=== PATIENT | male | born 1960 | race Caucasian/White ===

== ENCOUNTER 2016-11-16 08:14 | Outpatient (CLI) ==
[2016-11-16 08:50] LABS: BASOPHILS # (AUTO) 0.1 K/uL (0-0.2); BASOPHILS % (AUTO) 0.6 % (0.0-3.0); EOSINOPHILS # (AUTO) 0.4 K/ul (0.0-0.7); EOSINOPHILS % (AUTO) 4.7 % (0.0-7.0); HEMATOCRIT 46.2 % (42.0-52.0); HEMOGLOBIN 15.4 g/dl (14.0-18.0); IMMATURE GRANULOCYTE % (AUTO) 0.5 % (0.0-5.0); LYMPHOCYTES % (AUTO) 25.1 (10.0-50.0); MEAN CORPUSCULAR HEMOGLOBIN 29.3 pg (27.0-31.0); MEAN CORPUSCULAR HGB CONC 33.3 (31.8-35.4); MONOCYTES # (AUTO) 0.8 K/uL (0.4-2.0); MONOCYTES % (AUTO) 9.8 (0-10); NEUTROPHILS # (AUTO) 4.6 K/ul (2.0-6.9); NEUTROPHILS % (AUTO) 59.3; PLATELET COUNT 308 10^3/uL (140-440); RED BLOOD COUNT 5.25 10^6/ul (4.70-6.10); WHITE BLOOD COUNT 7.82 K/ul (4.2-10.2)
[2016-11-16 09:07] LABS: ALBUMIN 3.8 g/dL (3.4-5.0); ALBUMIN/GLOBULIN RATIO 1.15; ANION GAP 13.4; BILIRUBIN,TOTAL 0.28 mg/dL (0.00-1.20); CALCIUM 9.5 mg/dL (8.2-10.2); CHOL/HDL RATIO 4.1 (4.5-6.4); POTASSIUM 4.4 mmol/L (3.5-5.1); TOTAL PROTEIN 7.1 g/dL (6.4-8.2)
== END 2016-11-16 08:15 | disposition home or self-care (01) ==
LOC: LAB 08:14
PROVIDERS: ATTEND Family Medicine
DX: E78.5 Hyperlipidemia, unspecified (principal); E11.9 Type 2 diabetes mellitus without complications; I25.10 Atherosclerotic heart disease of native coronary artery without angina pectoris; Z86.73 Personal history of transient ischemic attack (TIA), and cerebral infarction without residual deficits
CPT/HCPCS: 36415; 80053; 80061; 83036; 85025

== ENCOUNTER 2017-01-11 08:29 | Outpatient (CLI) ==
[2017-01-11 09:04] LABS: BILIRUBIN,URINE Negative (NEGATIVE); KETONES,URINE Negative (NEGATIVE); LEUKOCYTE ESTERASE ,URINE Negative (NEGATIVE); NITRITE,URINE Negative (NEGATIVE); PROTEIN,URINE Negative (NEGATIVE); URINE, BLOOD Negative (NEGATIVE)
[2017-01-11 09:05] LABS: ADD URINE MICROSCOPIC NO
[2017-01-11 09:07] LABS: BASOPHILS # (AUTO) 0.1 K/uL (0-0.2); BASOPHILS % (AUTO) 0.6 % (0.0-3.0); EOSINOPHILS # (AUTO) 0.3 K/ul (0.0-0.7); HEMATOCRIT 44.6 % (42.0-52.0); HEMOGLOBIN 15.3 g/dl (14.0-18.0); IMMATURE GRANULOCYTE % (AUTO) 0.5 % (0.0-5.0); LYMPHOCYTES % (AUTO) 23.9 (10.0-50.0); MEAN CORPUSCULAR HEMOGLOBIN 29.8 pg (27.0-31.0); MEAN CORPUSCULAR HGB CONC 34.3 (31.8-35.4); MEAN CORPUSCULAR VOLUME 86.8 fl (80.0-94.0); MONOCYTES # (AUTO) 0.8 K/uL (0.4-2.0); MONOCYTES % (AUTO) 9.2 (0-10); NEUTROPHILS # (AUTO) 5.1 K/ul (2.0-6.9); NEUTROPHILS % (AUTO) 61.8; PLATELET COUNT 312 10^3/uL (140-440); RED BLOOD COUNT 5.14 10^6/ul (4.70-6.10); WHITE BLOOD COUNT 8.28 K/ul (4.2-10.2)
[2017-01-11 09:26] LABS: ALBUMIN 3.9 g/dL (3.4-5.0); ALBUMIN/GLOBULIN RATIO 1.18; ANION GAP 12.4; BILIRUBIN,TOTAL 0.58 mg/dL (0.00-1.20); BUN/CREATININE RATIO 17.89; CALCIUM 9.5 mg/dL (8.2-10.2); CHOL/HDL RATIO 3.3 (4.5-6.4); CREATININE 0.95 mg/dL (0.60-1.10); POTASSIUM 4.4 mmol/L (3.5-5.1); TOTAL PROTEIN 7.2 g/dL (6.4-8.2)
== END 2017-01-11 08:30 | disposition home or self-care (01) ==
LOC: LAB 08:29
PROVIDERS: ATTEND Family Medicine
DX: I10 Essential (primary) hypertension (principal); E78.5 Hyperlipidemia, unspecified; E11.9 Type 2 diabetes mellitus without complications; Z86.73 Personal history of transient ischemic attack (TIA), and cerebral infarction without residual deficits
CPT/HCPCS: 36415; 80053; 80061; 81001; 83036; 85025

== ENCOUNTER 2017-04-04 10:17 | Outpatient (CLI) ==
[2017-04-04 10:35] LABS: BASOPHILS # (AUTO) 0.1 K/uL (0-0.2); BASOPHILS % (AUTO) 0.7 % (0.0-3.0); EOSINOPHILS # (AUTO) 0.3 K/ul (0.0-0.7); EOSINOPHILS % (AUTO) 3.4 % (0.0-7.0); HEMATOCRIT 44.7 % (42.0-52.0); HEMOGLOBIN 15.3 g/dl (14.0-18.0); IMMATURE GRANULOCYTE % (AUTO) 0.2 % (0.0-5.0); LYMPHOCYTES # (AUTO) 2.5 K/uL (0.60-3.4); LYMPHOCYTES % (AUTO) 31.2 (10.0-50.0); MEAN CORPUSCULAR HEMOGLOBIN 29.9 pg (27.0-31.0); MEAN CORPUSCULAR HGB CONC 34.2 (31.8-35.4); MEAN CORPUSCULAR VOLUME 87.3 fl (80.0-94.0); MONOCYTES # (AUTO) 0.7 K/uL (0.4-2.0); MONOCYTES % (AUTO) 8.1 (0-10); NEUTROPHILS # (AUTO) 4.5 K/ul (2.0-6.9); NEUTROPHILS % (AUTO) 56.4; PLATELET COUNT 304 10^3/uL (140-440); RED BLOOD COUNT 5.12 10^6/ul (4.70-6.10); WHITE BLOOD COUNT 8.05 K/ul (4.2-10.2)
[2017-04-04 11:03] LABS: ALBUMIN/GLOBULIN RATIO 1.05; ANION GAP 15.3; BILIRUBIN,TOTAL 0.34 mg/dL (0.00-1.20); BUN/CREATININE RATIO 16.49; CALCIUM 9.5 mg/dL (8.2-10.2); CREATININE 0.97 mg/dL (0.60-1.10); POTASSIUM 4.3 mmol/L (3.5-5.1); TOTAL PROTEIN 7.8 g/dL (6.4-8.2)
== END 2017-04-04 10:18 | disposition home or self-care (01) ==
LOC: LAB 10:17
PROVIDERS: ATTEND Family Medicine
DX: E78.5 Hyperlipidemia, unspecified (principal); I10 Essential (primary) hypertension; E11.9 Type 2 diabetes mellitus without complications; I63.9 Cerebral infarction, unspecified
CPT/HCPCS: 36415; 80053; 80061; 83036; 85025

== ENCOUNTER 2017-04-09 22:37 | Emergency (ER) ==
[2017-04-09 22:46] VITALS: BP 129/75; TEMP 98.4; BMI 30.9
[2017-04-09] MEDS ORDERED: KEFLEX PO STA (23:00)
[2017-04-09] MEDS ORDERED: CLARITIN PO ONE (23:00)
--- NOTE | 2017-04-09 23:04 | ED.PDOC ---
General ED Provider: Dr. BRANDI MUÑOZ Chief Complaint: Bite Stated Complaint: some thing bite at home in [place] on rt foot, its burning and hurting. Time Seen by Physician: 23:02 Mode of Arrival: Walk-In Information Source: Patient Primary Care Provider: CESILIA TOUSSAINT Nursing and Triage Documentation Reviewed and Agree: Yes Skin Complaint Exam - Skin/Soft Tissue Complaint/Exam Symptoms Are: Still present Timing: Constant Initial Severity: Mild Current Severity: Mild Character: Reports: Redness, Painful Aggravating: Reports: Touch Alleviating: Reports: None Associated Signs and Symptoms: Reports: Tenderness, Red streaks. Denies: Fever , Chills, Itching, Drainage, Bruising, Joint swelling Related Surgical History: Reports: None Skin Findings: Present: Erythema Differential Diagnoses: Cellulitis, Other (insect bite) Review of Systems - Review Of Systems Constitutional: Reports: No symptoms Eyes: Reports: No symptoms Ears, Nose, Mouth, Throat: Reports: No symptoms Respiratory: Reports: No symptoms Cardiac: Reports: No symptoms GI: Reports: No symptoms : Reports: No symptoms Musculoskeletal: Reports: No symptoms Skin: Reports: No symptoms Neurological: Reports: No symptoms Endocrine: Reports: No symptoms Hematologic/Lymphatic: Reports: No symptoms All Other Systems: Reviewed and Negative Past Medical History - Past Medical History Previously Healthy: Yes Endocrine: Reports: DM 2, Dyslipidemia Cardiovascular: Reports: Hypertension Respiratory: Reports: None Hematological: Reports: None Gastrointestinal: Reports: None Genitourinary: Reports: None 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) Musculoskeletal: Reports: None Cancer: Reports: None - Surgical History General Surgical History: Reports: None - Family History Family History: Reports: None - Social History Smoking Status: Never smoker Hx Substance Use: No Alcohol Screening: None - Immunizations Tetanus Shot up to Date: (UNKNOWN) Physical Exam - Physical Exam Appearance: Well-appearing, No pain distress, Well-nourished Eyes: MISA, EOMI, Conjunctiva clear ENT: Ears normal, Nose normal, Oropharynx normal Respiratory: Airway patent, Breath sounds clear, Breath sounds equal, Respirations nonlabored Cardiovascular: RRR, Pulses normal, No rub, No murmur GI/: Soft, Nontender, No masses, Bowel sounds normal, No Organomegaly Musculoskeletal: Normal strength, ROM intact, No edema, No calf tenderness Skin: Warm (rt foot, war, red, not black, pulse present), Dry, Normal color Neurological: Sensation intact, Motor intact, Reflexes intact, Cranial nerves intact, Alert, Oriented Psychiatric: Affect appropriate, Mood appropriate Critical Care Note - Critical Care Note Total Time (mins): 0 Course - Course Orders, Labs, Meds: Orders Category Date Time Status Cephalexin [Keflex] MEDS 04/09/17 23:00 Stat 500 mg PO ONCE STA Loratadine [Claritin] MEDS 04/09/17 23:00 Once 10 mg PO ONCE ONE Vital Signs: Temp Pulse Resp BP Pulse Ox 04/09/17 22:38 98.4 F 81 18 129/75 96 Departure - Departure Time of Disposition: 23:06 Disposition: HOME SELF-CARE Discharge Problem: Insect bite Qualifiers: Encounter type: initial encounter Qualifier Code: (W57.XXXA) Bitten or stung by nonvenomous insect and other nonvenomous arthropods, initial encounter Instructions: Insect Bite or Sting (ED) Condition: Stable Pt referred to PMD for follow-up: Yes Additional Instructions: Tylenol prn Rest If more redness and pain needs to come back probiotics Prescriptions: Cephalexin [Keflex] 500 mg PO Q12HR #20 capsule Loratadine [Claritin] 10 mg PO DAILY #10 tab.rapdis Allergies/Adverse Reactions: Allergies No Known Drug Allergies Adverse Reaction (Verified 04/09/17 22:46) Home Medications: Ambulatory Orders Cephalexin [Keflex] 500 mg PO Q12HR #20 capsule 04/09/17 Loratadine [Claritin] 10 mg PO DAILY #10 tab.rapdis 04/09/17 Disposition Discussed With: Patient
== END 2017-04-09 23:14 | disposition home or self-care (01) ==
LOC: ED 22:37
DX: S90.861A Insect bite (nonvenomous), right foot, initial encounter (principal); W57.XXXA Bitten or stung by nonvenomous insect and other nonvenomous arthropods, initial encounter
CPT/HCPCS: 99283

== ENCOUNTER 2017-04-25 09:43 | Outpatient (CLI) ==
[2017-04-25 10:17] LABS: BASOPHILS % (AUTO) 0.5 % (0.0-3.0); EOSINOPHILS # (AUTO) 0.2 K/ul (0.0-0.7); EOSINOPHILS % (AUTO) 3.1 % (0.0-7.0); HEMATOCRIT 42.9 % (42.0-52.0); HEMOGLOBIN 14.6 g/dl (14.0-18.0); IMMATURE GRANULOCYTE % (AUTO) 0.4 % (0.0-5.0); LYMPHOCYTES # (AUTO) 2.2 K/uL (0.60-3.4); MEAN CORPUSCULAR HEMOGLOBIN 30.2 pg (27.0-31.0); MEAN CORPUSCULAR VOLUME 88.6 fl (80.0-94.0); MONOCYTES # (AUTO) 0.7 K/uL (0.4-2.0); MONOCYTES % (AUTO) 8.9 (0-10); NEUTROPHILS # (AUTO) 4.6 K/ul (2.0-6.9); NEUTROPHILS % (AUTO) 59.1; PLATELET COUNT 301 10^3/uL (140-440); RED BLOOD COUNT 4.84 10^6/ul (4.70-6.10); WHITE BLOOD COUNT 7.71 K/ul (4.2-10.2)
[2017-04-25 10:26] LABS: BILIRUBIN,URINE Negative (NEGATIVE); KETONES,URINE Trace (NEGATIVE); LEUKOCYTE ESTERASE ,URINE Negative (NEGATIVE); NITRITE,URINE Negative (NEGATIVE); PH,URINE 5.5 (5-9); PROTEIN,URINE Trace (NEGATIVE); URINE, BLOOD Negative (NEGATIVE)
[2017-04-25 10:30] LABS: ADD URINE MICROSCOPIC YES
[2017-04-25 10:41] LABS: ALBUMIN 3.8 g/dL (3.4-5.0); ALBUMIN/GLOBULIN RATIO 1.09; ANION GAP 14.6; BILIRUBIN,TOTAL 0.47 mg/dL (0.00-1.20); BUN/CREATININE RATIO 15.74; CALCIUM 9.5 mg/dL (8.2-10.2); CREATININE 1.08 mg/dL (0.60-1.10); POTASSIUM 4.6 mmol/L (3.5-5.1); TOTAL PROTEIN 7.3 g/dL (6.4-8.2)
[2017-04-26 14:23] LABS: GAMMA GLUTAMYL TRANSFERASE 22 IU/L (0-65)
== END 2017-04-25 09:44 | disposition home or self-care (01) ==
LOC: LAB 09:43
PROVIDERS: ATTEND Family Medicine
DX: R19.7 Diarrhea, unspecified (principal)
CPT/HCPCS: 36415; 80053; 81001; 82977; 85025; 87015; 87045; 87493; 87899; 89055

== ENCOUNTER 2017-05-09 10:13 | Outpatient (CLI) | END 2017-05-09 10:14 | disposition home or self-care (01) | LOC: LAB 10:13 | PROVIDERS: ATTEND Family Medicine | DX: E11.65 Type 2 diabetes mellitus with hyperglycemia (principal) | CPT/HCPCS: 36415; 82947 ==

== ENCOUNTER 2017-06-27 10:06 | Outpatient (CLI) ==
[2017-06-27 10:20] LABS: BASOPHILS % (AUTO) 0.4 % (0.0-3.0); EOSINOPHILS # (AUTO) 0.2 K/ul (0.0-0.7); EOSINOPHILS % (AUTO) 2.6 % (0.0-7.0); HEMATOCRIT 44.2 % (42.0-52.0); HEMOGLOBIN 15.1 g/dl (14.0-18.0); IMMATURE GRANULOCYTE % (AUTO) 0.4 % (0.0-5.0); LYMPHOCYTES # (AUTO) 2.4 K/uL (0.60-3.4); LYMPHOCYTES % (AUTO) 26.3 (10.0-50.0); MEAN CORPUSCULAR HEMOGLOBIN 30.1 pg (27.0-31.0); MEAN CORPUSCULAR HGB CONC 34.2 (31.8-35.4); MONOCYTES # (AUTO) 0.8 K/uL (0.4-2.0); MONOCYTES % (AUTO) 8.7 (0-10); NEUTROPHILS # (AUTO) 5.5 K/ul (2.0-6.9); NEUTROPHILS % (AUTO) 61.6; PLATELET COUNT 286 10^3/uL (140-440); RED BLOOD COUNT 5.02 10^6/ul (4.70-6.10)
[2017-06-27 10:38] LABS: ALBUMIN 3.8 g/dL (3.4-5.0); ALBUMIN/GLOBULIN RATIO 1.12; ANION GAP 11.1; BILIRUBIN,TOTAL 0.52 mg/dL (0.00-1.20); BUN/CREATININE RATIO 16.84; CALCIUM 9.6 mg/dL (8.2-10.2); CHOL/HDL RATIO 3.8 (4.5-6.4); CREATININE 0.95 mg/dL (0.60-1.10); POTASSIUM 4.1 mmol/L (3.5-5.1); TOTAL PROTEIN 7.2 g/dL (6.4-8.2)
== END 2017-06-27 10:07 | disposition home or self-care (01) ==
LOC: LAB 10:06
PROVIDERS: ATTEND Family Medicine
DX: E78.5 Hyperlipidemia, unspecified (principal); E11.9 Type 2 diabetes mellitus without complications; I10 Essential (primary) hypertension; Z86.73 Personal history of transient ischemic attack (TIA), and cerebral infarction without residual deficits
CPT/HCPCS: 36415; 80053; 80061; 83036; 85025

== ENCOUNTER 2017-08-13 12:09 | Observation (INO) ==
--- NOTE | 2017-08-13 12:33 | ED.PDOC ---
General ED Provider: Dr. KEYUR KUNZ Chief Complaint: Dizziness Stated Complaint: Patient is a 57 year old female who comes to the ER with complain male who states he started feeling dizzy and nauseate when he got up this morning. He also felt nauseated. Although now feels better wanted to make sure he was ok. Has a history of CVA one year ago. Has been taking mediations as prescribed including Plavix. Time Seen by Physician: 12:28 Mode of Arrival: Walk-In Information Source: Patient Exam Limitations: No limitations Primary Care Provider: CESILIA TOUSSAINT Nursing and Triage Documentation Reviewed and Agree: Yes Neurological Complaint Exam - Headache Complaint/Exam Duration: few min - Dizziness Complaint/Exam Last Known Well: yesterday Onset: Sudden Duration: few mins Symptoms Are: Resolved Associated Signs and Symptoms: Reports: Nausea Differential Diagnoses: Anxiety Quality Indicator For Non-Traumatic Chest Pain/Syncope: EKG Performed Review of Systems - Review Of Systems Constitutional: Reports: Weakness Eyes: Reports: No symptoms Ears, Nose, Mouth, Throat: Reports: Nose discharge Respiratory: Reports: No symptoms Cardiac: Reports: Lightheadedness GI: Reports: No symptoms : Reports: No symptoms Musculoskeletal: Reports: No symptoms Skin: Reports: No symptoms Neurological: Reports: Anxiety Endocrine: Reports: No symptoms Hematologic/Lymphatic: Reports: No symptoms All Other Systems: Reviewed and Negative Past Medical History - Past Medical History Previously Healthy: Yes Endocrine: Reports: DM 2, Dyslipidemia Cardiovascular: Reports: Hypertension Respiratory: Reports: None Hematological: Reports: None Gastrointestinal: Reports: None Genitourinary: Reports: None 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) Musculoskeletal: Reports: None Cancer: Reports: None - Surgical History General Surgical History: Reports: None - Family History Family History: Reports: None - Social History Smoking Status: Never smoker Hx Substance Use: No Alcohol Screening: None - Immunizations Tetanus Shot up to Date: Yes Physical Exam - Physical Exam Appearance: Well-appearing, No pain distress, Well-nourished Eyes: MISA, EOMI, Conjunctiva clear ENT: Nose normal, Oropharynx normal Neck: Supple Respiratory: Airway patent Cardiovascular: RRR, Pulses normal, No rub, No murmur GI/: Soft, Nontender, No masses, Bowel sounds normal, No Organomegaly Musculoskeletal: Normal strength, ROM intact, No edema, No calf tenderness Neurological: Sensation intact, Motor intact, Alert, Oriented Psychiatric: Anxious Interpretation - Radiology Interpretation Radiology Interpretation By: Radiologist Radiology Results: No acute changes Exam Interpreted: CT Scan (Head) - EKG Interpretation Time of EKG #1: 12:39 Rate: Normal Rhythm: Sinus Ectopy: None Clune: NL ST Segment: Normal Interpretation: normal EKG Critical Care Note - Critical Care Note Total Time (mins): 0 Course - Course Hematology/Chemistry: 08/13/17 12:35 08/13/17 12:35 Orders, Labs, Meds: Lab Review 08/13/17 08/13/17 08/13/17 12:35 12:35 12:35 WBC 11.29 H RBC 5.10 Hgb 15.2 Hct 44.0 MCV 86.3 MCH 29.8 MCHC 34.5 RDW Coeff of Donald 12.3 Plt Count 298 Immature Gran % (Auto) 0.4 Neut % (Auto) 69.4 Lymph % (Auto) 15.5 Marion % (Auto) 8.0 Eos % (Auto) 5.9 Baso % (Auto) 0.8 Immature Gran # (Auto) 0.1 Neut # 7.8 H Lymph # 1.8 Marion # 0.9 Eos # 0.7 Baso # 0.1 Sodium 137 Potassium 4.6 Chloride 103 Carbon Dioxide 25 Anion Gap 13.6 BUN 16 Creatinine 0.94 Estimated GFR (MDRD) 82.00 BUN/Creatinine Ratio 17.02 Glucose 156 H Calcium 9.6 Total Bilirubin 0.38 AST 15 ALT 9 L Alkaline Phosphatase 64 Total Creatine Kinase 129 CK-MB (CK-2) 1.6 CK-MB (CK-2) % 1.15641 Troponin I 0.0110 B-Natriuretic Peptide 13 Total Protein 7.5 Albumin 3.9 Globulin 3.6 Albumin/Globulin Ratio 1.08 Orders Category Date Time Status EKG-(ED ONLY) Stat CARDIO 08/13/17 12:23 Completed NEBULIZER TREATMENT Stat CARDIO 08/13/17 12:44 Completed IV [ED IV/MEDIPORT/POWERPORT] .ONCE EMERGENCY 08/13/17 12:54 Active Orthostatic [ED ORTHOSTATIC VITAL SIGNS] .ONCE EMERGENCY 08/13/17 12:45 Active B-TYPE NATRIURETIC PEPTIDE Stat LAB 08/13/17 12:35 Completed CBC W/ AUTO DIFF Stat LAB 08/13/17 12:35 Completed COMPREHENSIVE METABOLIC PANEL Stat LAB 08/13/17 12:35 Completed CREATINE KINASE Stat LAB 08/13/17 12:35 Completed TROPONIN I Stat LAB 08/13/17 12:35 Completed 0.9 % Sodium Chloride [Saline Flush] MEDS 08/13/17 12:54 Ordered 1 syr IVF PRN PRN Ipratropium/Albuterol Neb [Duoneb] MEDS 08/13/17 12:44 Discontinued 1 vial NEB ONCE STA Sodium Chloride 0.9% [Sodium Chloride] 1,000 ml MEDS 08/13/17 12:54 Discontinued IV BOLUS CHEST, 1V AP ONLY Stat RADS 08/13/17 12:[address] HEAD W/O CONTRAST Stat RADS 08/13/17 12:23 Completed Medications Generic Name Dose Route Start Last Admin Trade Name Freq PRN Reason Stop Dose Admin Atorvastatin Calcium 20 mg 08/14/17 09:00 Lipitor PO DAILY [facility] Clopidogrel Bisulfate 75 mg 08/14/17 09:00 Plavix PO DAILY [facility] Enoxaparin Sodium 40 mg 08/14/17 09:00 Lovenox SUBCUT DAILY [facility] Sodium Chloride 1,000 mls @ 150 mls/hr 08/13/17 14:30 Sodium Chloride IV .Q6H40M [facility] Insulin Human Regular 0 - 15 unit 08/13/17 14:13 Humulin R SUBCUT PRN PRN Hyperglycemica Protocol Linagliptin 5 mg 08/14/17 09:00 Tradjenta PO DAILY [facility] Lisinopril 10 mg 08/14/17 09:00 Zestril PO DAILY [facility] Methylprednisolone Sodium Succinate 125 mg 08/13/17 14:30 Solu-Medrol 125 Mg IVP Q8HR FANY Sodium Chloride 1 syr 08/13/17 12:54 08/13/17 13:27 Saline Flush IVF 1 syr PRN PRN Administration To flush IV Discontinued Medications Generic Name Dose Route Start Last Admin Trade Name Freq PRN Reason Stop Dose Admin Albuterol/Ipratropium 1 vial 08/13/17 12:44 08/13/17 12:53 Duoneb NEB 08/13/17 12:45 1 vial ONCE STA Administration Sodium Chloride 1,000 mls @ 1,000 mls/hr 08/13/17 12:54 08/13/17 13:27 Sodium Chloride IV 08/13/17 13:53 1,000 mls/hr BOLUS STA Administration Vital Signs: Temp Pulse Resp BP Pulse Ox 08/13/17 12:10 96.9 F L 86 20 139/83 94 L Departure - Departure Time of Disposition: 14:14 Disposition: ADMITTED INPATIENT Discharge Problem: Dizziness, Orthostatic hypotension Condition: Fair Pt referred to PMD for follow-up: Yes Allergies/Adverse Reactions: Allergies No Known Drug Allergies Adverse Reaction (Verified 08/13/17 12:14) Home Medications: Ambulatory Orders Atorvastatin Calcium 20 mg PO DAILY 08/13/17 Clopidogrel Bisulfate [Clopidogrel] 75 mg PO DAILY 08/13/17 Linagliptin [Tradjenta] 5 mg PO DAILY 08/13/17 Lisinopril 10 mg PO DAILY 08/13/17 Disposition Discussed With: Patient
[2017-08-13 12:42] LABS: BASOPHILS # (AUTO) 0.1 K/uL (0-0.2); BASOPHILS % (AUTO) 0.8 % (0.0-3.0); EOSINOPHILS # (AUTO) 0.7 K/ul (0.0-0.7); EOSINOPHILS % (AUTO) 5.9 % (0.0-7.0); HEMOGLOBIN 15.2 g/dl (14.0-18.0); IMMATURE GRANULOCYTE % (AUTO) 0.4 % (0.0-5.0); LYMPHOCYTES # (AUTO) 1.8 K/uL (0.60-3.4); LYMPHOCYTES % (AUTO) 15.5 (10.0-50.0); MEAN CORPUSCULAR HEMOGLOBIN 29.8 pg (27.0-31.0); MEAN CORPUSCULAR HGB CONC 34.5 (31.8-35.4); MEAN CORPUSCULAR VOLUME 86.3 fl (80.0-94.0); MONOCYTES # (AUTO) 0.9 K/uL (0.4-2.0); NEUTROPHILS # (AUTO) 7.8 K/ul (2.0-6.9); NEUTROPHILS % (AUTO) 69.4; PLATELET COUNT 298 10^3/uL (140-440); WHITE BLOOD COUNT 11.29 K/ul (4.2-10.2)
[2017-08-13] MEDS ORDERED: DUONEB NEB STA (12:44)
[2017-08-13] MEDS ORDERED: SODIUM CHLORIDE 1,000 ML IV STA (12:54)
--- NOTE | 2017-08-13 12:55 | CT ---
EXAM: CT scan of the head without contrast HISTORY: Dizzy TECHNIQUE: Helical imaging of the head was performed without intravenous contrast. 5 mm thin axial images and coronal and sagittal images were provided for interpretation. FINDINGS: The crawford-white interface appears normal. No acute hemorrhages are seen. There is no mass effect. There is old lacunar type infarct seen within the right basal ganglia. The paranasal sinuses and mastoid air cells are clear. The calvarium and extracranial soft tissues are normal. IMPRESSION: No acute intracranial abnormalities are seen. Old lacunar infarct seen within the right basal ganglia.
[2017-08-13 13:18] LABS: ALBUMIN 3.9 g/dL (3.4-5.0); ALBUMIN/GLOBULIN RATIO 1.08; ANION GAP 13.6; BILIRUBIN,TOTAL 0.38 mg/dL (0.00-1.20); BUN/CREATININE RATIO 17.02; CALCIUM 9.6 mg/dL (8.2-10.2); CREATININE 0.94 mg/dL (0.60-1.10); POTASSIUM 4.6 mmol/L (3.5-5.1); TOTAL PROTEIN 7.5 g/dL (6.4-8.2); TROPONIN I 0.011 ng/ml (0.0000-0.4000)
[2017-08-13 13:20] LABS: CREATINE KINASE MB 1.6 ng/ml (0.0-3.6)
--- NOTE | 2017-08-13 13:31 | DI ---
EXAM: Chest one view. CLINICAL INDICATION: Malaise. Feeling poorly. COMPARISON: None available. FINDINGS: A single AP radiograph of the thorax is provided. The pulmonary parenchyma is clear and there is no pleural abnormality. The cardiomediastinal silhoue tte and visualized bony structures are unremarkable. IMPRESSION: Negative chest x-ray.
[2017-08-13] MEDS ORDERED: HUMULIN R SUBCUT PRN (14:13)
[2017-08-13] MEDS ORDERED: SOLU-MEDROL 125 MG IVP STA (14:27)
[2017-08-13] MEDS: SODIUM CHLORIDE 1,000 ML IV SCH ×2 (15:00→23:00)
[2017-08-13 15:40] VITALS: BMI 31.1
[2017-08-13] MEDS: SOLU-MEDROL 125 MG IVP SCH ×2 (16:43→21:25)
[2017-08-13] MEDS ORDERED: ZOFRAN 4 MG/2 ML IVP PRN (19:43)
[2017-08-13] MEDS: DUONEB NEB SCH (19:50)
[2017-08-13 20:48] LABS: FLU INTERNAL QC INTERNAL QC VALID; RAPID FLU A NEGATIVE (NEGATIVE); RAPID FLU B NEGATIVE (NEGATIVE)
[2017-08-13] MEDS ORDERED: AUGMENTIN 500-125 MG TAB PO SCH (21:00)
[2017-08-14] MEDS ORDERED: XOPENEX 0.63 MG NEB ONE (04:24)
[2017-08-14 05:02] LABS: BASOPHILS % (AUTO) 0.1 % (0.0-3.0); HEMATOCRIT 42.2 % (42.0-52.0); HEMOGLOBIN 14.3 g/dl (14.0-18.0); IMMATURE GRANULOCYTE % (AUTO) 0.4 % (0.0-5.0); LYMPHOCYTES # (AUTO) 1.3 K/uL (0.60-3.4); MEAN CORPUSCULAR HEMOGLOBIN 29.6 pg (27.0-31.0); MEAN CORPUSCULAR HGB CONC 33.9 (31.8-35.4); MEAN CORPUSCULAR VOLUME 87.4 fl (80.0-94.0); MONOCYTES # (AUTO) 0.2 K/uL (0.4-2.0); MONOCYTES % (AUTO) 1.6 (0-10); NEUTROPHILS # (AUTO) 12.5 K/ul (2.0-6.9); NEUTROPHILS % (AUTO) 88.9; PLATELET COUNT 299 10^3/uL (140-440); RED BLOOD COUNT 4.83 10^6/ul (4.70-6.10); WHITE BLOOD COUNT 14.02 K/ul (4.2-10.2)
[2017-08-14 05:21] LABS: ANION GAP 14.3; BUN/CREATININE RATIO 16.66; CALCIUM 9.1 mg/dL (8.2-10.2); CREATININE 0.9 mg/dL (0.60-1.10); POTASSIUM 4.3 mmol/L (3.5-5.1)
[2017-08-14] MEDS: SODIUM CHLORIDE 1,000 ML IV SCH (05:35)
[2017-08-14] MEDS: DUONEB NEB SCH (05:51)
[2017-08-14] MEDS: SOLU-MEDROL 125 MG IVP SCH (05:52)
[2017-08-14] MEDS ORDERED: PROTONIX PO SCH (06:30)
[2017-08-14 06:31] VITALS: BP 118/75; TEMP 97.6
[2017-08-14] MEDS ORDERED: AUGMENTIN 500-125 MG TAB PO SCH (08:00)
[2017-08-14] MEDS ORDERED: ZESTRIL PO SCH (09:00)
[2017-08-14] MEDS ORDERED: LOVENOX SUBCUT SCH (09:00)
[2017-08-14] MEDS ORDERED: PLAVIX PO SCH (09:00)
[2017-08-14] MEDS ORDERED: TRADJENTA PO SCH (09:00)
[2017-08-14] MEDS ORDERED: LIPITOR PO SCH (09:00)
--- NOTE | 2017-08-15 15:55 | SSS ---
DATE OF SERVICE: 08/14/17 REASON FOR CONSULTATION/ADMISSION: Dizziness HISTORY OF PRESENT ILLNESS: The patient is a 57 year old male who came to the emergency room with being dizziness, feeling clammy, epigastric discomfort after having some chicken when he started to stand up he almost fainted and felt weak. He came to the emergency room and was seen by Dr. Lantigua. WBC was normal, BUN and Creatinine was normal. Orthostasis was positive. Systolic has dropped from 157 to 107 with orthostasis. At that time the patient was admitted to the hospital. Also was having some upper respiratory infection, ear pain and sore throat with congestion. REVIEW OF SYSTEMS: CONSTITUTIONAL: No night sweats. No fatigue, malaise, lethargy. No fever or chills.Weakness. Tiredness. HEENT: Eyes: No visual changes. No eye pain. No eye discharge. ENT: No runny nose. No epistaxis. No sinus pain. No sore throat. No odynophagia. Ears full. No congestion. RESPIRATORY: Cough, Congestion. No hemoptysis. No shortness of breath. CARDIOVASCULAR: No angina symptoms. No CHF symptoms. No atypical chest pain for CAD. No palpitations. No orthopnea. GASTROINTESTINAL: No abdominal pain. Nausea and vomited times 1. No diarrhea or constipation. No hematemesis. No hematochezia. GENITOURINARY: No dysuria. No hematuria. No obstructive symptoms. No discharge. No pain. No significant abnormal bleeding. MUSCULOSKELETAL: No musculoskeletal pain. No joint swelling. NEUROLOGICAL: Awake, alert, oriented to time, place and person. No headache. No neck pain. No syncope. No seizures. Dizziness. PSYCHIATRIC: Not anxious. No depression. No suicidal thoughts. No homicidal thoughts. SKIN: No rash. No lesions. No wounds. ENDOCRINE: No unexplained weight loss. No weight gain. HEMATOLOGIC/LYMPHATIC: No anemia. No purpura. No petechiae. No prolonged or excessive bleeding. No palpable lymph nodes. PAST HISTORY: History of heart problem Dyslipidemia Hypertension Stroke with no residual problems Diabetes Tonsillectomy Appendectomy PERSONAL/FAMILY HISTORY/SOCIAL HISTORY: Alcohol use. No smoking, quit 8 years ago. Lives by himself. Family history is significant for heart problems PHYSICAL EXAMINATION: VITAL SIGNS: Blood pressure 139/83, respiratory rate 20, heart rate 86, temperature 96.9 with saturation 94%. HEENT: Head normocephalic, atraumatic. Eyes: Extraocular muscles are intact. Pupils are equal, round and reactive to light and accommodation. Ears: No lesions. Nose appeared normal. Throat: No exudate or erythema.Mucosa dry. NECK: Supple. No JVD, no carotid bruit. No lymphadenopathy or thyromegaly. LUNGS: Clear to auscultation. Percussion note normal. Chest symmetrical. HEART: S1, S2, no S3. No murmurs. No cyanosis or clubbing. No ascites. Pulses: Dorsalis pedis and posterior tibial pulses +1 to +2 both sides. ABDOMEN: Soft. Nontender. Bowel sounds active. No CVA tenderness. No mass felt. EXTREMITIES: No edema. Full range of motion of all extremities, equal. NEUROLOGIC: No focal deficit. Cranial nerves II through XII are grossly intact. No headache, no double vision or headache. Awake and alert. Oriented times three. SKIN: Not dry. Intact. Turgor - normal. LYMPHATIC: No palpable lymph nodes/no lymphedema. MUSCULOSKELETAL: Normal joints with no swelling. Muscle tone is normal. Motor 5 out of 5. ALLERGIES: No known drug allergies. MEDICATIONS: Tradjenta Clopidogrel Atorvastatin Lisinopril Azelastine LABS/EKG'S/X-RAY/ECHO/ABG: Sodium 136, potassium 4.3, chloride 104, bicarb 22, BUN 15, creatinine 0.90, glucose 209. BRIEF HOSPITAL COURSE: The patient was started on the IV fluids, steroids, Augment antibiotic and Zofran for nausea. Vomited once only the food material and after that he was feeling fine. Today morning he is feeling a lot better getting up and going to the bathroom and did not have any problems with the dizziness. He says that he has to go as there is a football game that he wants to watch. As patient is clinically improved I'm going to discharge the patient. PROGRESS NOTES: See EMR. DIAGNOSES: 1. Upper respiratory infection 2. Intractable dizziness, no stroke 3. Gastroenteritis 4. History of diabetes 5. Hypertension 6. Dyslipidemia 7. Stroke without residual problems RECOMMENDATIONS/PLAN: 1. Discharge the patient home 2. Increase hydration 3. Soft diet for 3-4 days 4. Zofran 5mg PO twice a day for 10 days 5. Augmentin 500mg SUBCUT 12 hours for 7 days 6. Increase hydration 7. Probiotics Yogurt 8. Keep followup with Dr. Hubbard as scheduled. TIME SPENT: More than 55 minutes. MTDD
--- NOTE | 2017-08-16 09:26 | PN ---
DATE OF SERVICE: 08/13/17 CHIEF COMPLAINT: Dizziness SUBJECTIVE: This is a 57 year old male who came for the dizziness, sudden onset. Since morning is having cough, congestion, ear full, head full and then had some food from yesterday. Started having heaviness in the stomach, felt nausea, cold and clammy. He came to the emergency room to make sure he is fine. Dr. Lantigua saw the patient. The patient has a history of diabetes, CVA and hypertension. There was a huge gap in the orthostatic blood pressure. Initial labs were normal. CT chest is negative for the stroke. At that time the patient was admitted to the hospital for the upper respiratory infection, orthostatic hypotension and acute gastroenteritis. As soon as the patient was admitted the patient started vomiting and one to two emesis included food material. REVIEW OF SYSTEMS: CONSTITUTIONAL: No fever, no chills. HEENT: Normal. ENDOCRINE: No weight gain, no weight loss. CVS: No angina symptoms. No CHF symptoms. No palpitations. No atypical chest pain for CAD. No shortness of breath. No PND, no orthopnea. RESPIRATORY: No cough, no hemoptysis. GI: No nausea, no vomiting. No abdominal pain. : No hematuria. No polyuria. MUSCULOSKELETAL:. No joint swelling. PSYCHIATRIC: Not anxious. No depression. No suicidal thoughts. No homicidal thoughts. SKIN: Intact. No rash. PHYSICAL EXAMINATION: V/S: Blood pressure 142/78, respiratory 18, heart rate 89, temperature 98.6, saturation 94%. HEENT: Normocephalic, atraumatic. Mucosa dry. NECK: Supple. No JVD, no carotid bruit. No lymphadenopathy. LUNGS: Decreased and clear to auscultation. No rales or rhonchi. HEART: S1, S2 normal. No S3. No murmur, gallop or regurgitation. ABDOMEN: Soft, nontender. Bowel sounds active. No rigidity. No rebound or guarding. No CVA tenderness. Mild epigastric discomfort present. EXTREMITIES: No clubbing, cyanosis or pedal edema. MUSCULOSKELETAL: No joint swelling. NEUROLOGIC: Awake, alert, oriented times three. No focal deficit. LYMPHATIC: No lymph nodes palpable. SKIN: Intact. LABS: WBC 11.29, hgb 15.2, hct 44.0, plt count 298, sodium 137, potassium 4.6, chloride 103, bicarb 25, BUN 16, creatinine 0.94, glucose 156. First set of cardiac enzymes are negative. Influenza negative. CT head is negative. ASSESSMENT: 1. Upper respiratory infection 2. Intractable Dizziness 3. Gastroenteritis 4. History of diabetes 5. Hypertension 6. Dyslipidemia 7. CVA without any residual problems PLAN: 1. Admit patient to the regular floor 2. IV fluids 3. Decadron 1cc 4. Continue home medications 5. Zofran for nausea and vomiting 6. Protonix TIME SPENT: More than 55 minutes MTDD
== END 2017-08-14 10:50 | disposition left against medical advice (07) ==
LOC: ED 12:09 → MEDSURG B 13:47
PROVIDERS: ADMIT Emergency Medicine; ATTEND Emergency Medicine
DX: J06.9 Acute upper respiratory infection, unspecified (principal); K52.9 Noninfective gastroenteritis and colitis, unspecified; I95.1 Orthostatic hypotension; R42 Dizziness and giddiness; R10.13 Epigastric pain; I10 Essential (primary) hypertension; E11.9 Type 2 diabetes mellitus without complications; E78.5 Hyperlipidemia, unspecified; Z86.73 Personal history of transient ischemic attack (TIA), and cerebral infarction without residual deficits; Z79.84 Long term (current) use of oral hypoglycemic drugs; Z79.02 Long term (current) use of antithrombotics/antiplatelets
CPT/HCPCS: 36415; 80048; 80053; 82550; 82553; 82962; 83880; 84484; 85025; 87070; 87804; 93005; 93010; 94640; 96361; 96374; 99284

== ENCOUNTER 2017-09-21 10:27 | Outpatient (CLI) ==
[2017-09-21 10:51] LABS: BASOPHILS # (AUTO) 0.1 K/uL (0-0.2); BASOPHILS % (AUTO) 0.5 % (0.0-3.0); EOSINOPHILS # (AUTO) 0.7 K/ul (0.0-0.7); EOSINOPHILS % (AUTO) 7.4 % (0.0-7.0); HEMATOCRIT 46.4 % (42.0-52.0); HEMOGLOBIN 15.5 g/dl (14.0-18.0); IMMATURE GRANULOCYTE % (AUTO) 0.3 % (0.0-5.0); LYMPHOCYTES # (AUTO) 2.6 K/uL (0.60-3.4); LYMPHOCYTES % (AUTO) 27.2 (10.0-50.0); MEAN CORPUSCULAR HEMOGLOBIN 29.8 pg (27.0-31.0); MEAN CORPUSCULAR HGB CONC 33.4 (31.8-35.4); MEAN CORPUSCULAR VOLUME 89.1 fl (80.0-94.0); MONOCYTES # (AUTO) 0.8 K/uL (0.4-2.0); MONOCYTES % (AUTO) 8.1 (0-10); NEUTROPHILS # (AUTO) 5.3 K/ul (2.0-6.9); NEUTROPHILS % (AUTO) 56.5; PLATELET COUNT 342 10^3/uL (140-440); RED BLOOD COUNT 5.21 10^6/ul (4.70-6.10)
[2017-09-21 10:54] LABS: BILIRUBIN,URINE Negative (NEGATIVE); KETONES,URINE Negative (NEGATIVE); LEUKOCYTE ESTERASE ,URINE Negative (NEGATIVE); NITRITE,URINE Negative (NEGATIVE); PH,URINE 5.5 (5-9); PROTEIN,URINE Negative (NEGATIVE); URINE, BLOOD Negative (NEGATIVE)
[2017-09-21 10:56] LABS: ADD URINE MICROSCOPIC NO
[2017-09-21 11:16] LABS: ALBUMIN 3.7 g/dL (3.4-5.0); ALBUMIN/GLOBULIN RATIO 1.06; ANION GAP 10.2; BILIRUBIN,TOTAL 0.4 mg/dL (0.00-1.20); BUN/CREATININE RATIO 17.02; CALCIUM 9.7 mg/dL (8.2-10.2); CHOL/HDL RATIO 3.2 (4.5-6.4); CREATININE 0.94 mg/dL (0.60-1.10); POTASSIUM 4.2 mmol/L (3.5-5.1); TOTAL PROTEIN 7.2 g/dL (6.4-8.2)
== END 2017-09-21 10:28 | disposition home or self-care (01) ==
LOC: LAB 10:27
PROVIDERS: ATTEND Family Medicine
DX: E78.5 Hyperlipidemia, unspecified (principal); E11.9 Type 2 diabetes mellitus without complications; I10 Essential (primary) hypertension; M12.9 Arthropathy, unspecified; Z79.899 Other long term (current) drug therapy
CPT/HCPCS: 36415; 80053; 80061; 81001; 83036; 85025

== ENCOUNTER 2017-11-23 12:41 | Outpatient (CLI) | END 2017-11-23 12:42 | disposition home or self-care (01) | LOC: FCC-LAB 12:41 | PROVIDERS: ATTEND General Practice | DX: E11.9 Type 2 diabetes mellitus without complications (principal); G81.94 Hemiplegia, unspecified affecting left nondominant side; I63.9 Cerebral infarction, unspecified; Z79.899 Other long term (current) drug therapy; Z12.5 Encounter for screening for malignant neoplasm of prostate | CPT/HCPCS: 36415; 80053; 80061; 81001; 83037; 83519; 83525; 84681; 85025 ==

== ENCOUNTER 2017-12-06 13:52 | Outpatient (CLI) | END 2017-12-06 13:53 | disposition home or self-care (01) | LOC: FCC-LAB 13:52 | PROVIDERS: ATTEND General Practice | DX: Z12.11 Encounter for screening for malignant neoplasm of colon (principal) | CPT/HCPCS: 82272 ==

== ENCOUNTER 2018-03-06 09:06 | Outpatient (CLI) | END 2018-03-06 09:07 | disposition home or self-care (01) | LOC: FCC-LAB 09:06 | PROVIDERS: ATTEND General Practice | DX: E78.00 Pure hypercholesterolemia, unspecified (principal); I63.9 Cerebral infarction, unspecified; E11.9 Type 2 diabetes mellitus without complications; I10 Essential (primary) hypertension; Z79.899 Other long term (current) drug therapy | CPT/HCPCS: 36415; 80053; 80061; 81001; 83036; 85025; 87086 ==

== ENCOUNTER 2018-06-06 12:58 | Outpatient (CLI) | END 2018-06-06 12:59 | disposition home or self-care (01) | LOC: FCC-LAB 12:58 | PROVIDERS: ATTEND General Practice | DX: E78.00 Pure hypercholesterolemia, unspecified (principal); I10 Essential (primary) hypertension; I63.9 Cerebral infarction, unspecified; E11.9 Type 2 diabetes mellitus without complications; Z79.899 Other long term (current) drug therapy | CPT/HCPCS: 36415; 80053; 80061; 81001; 83036; 85025 ==

== ENCOUNTER 2018-06-09 11:41 | Outpatient (CLI) ==
--- NOTE | 2018-06-09 15:14 | DI ---
Exam: Cervical spine complete with obliques. HISTORY: Cervicalgia. Findings: Anterior, lateral, open-mouth and bilateral oblique images of the cervical spine are submi tted. These demonstrate mild degenerative disc and facet arthropathy with no compression fracture or listhesis. There is a large anterior osteophyte at the C5-6 level. The cervical spine below C6 is obscured on the lateral view. The odontoid process appears normally centered and intact. The neural foramina are inadequately visualized due to positioning. The prevertebral soft tissues within clara l limits. Impressions: No compression fracture or listhesis in the cervical spine. Multilevel mild degenerative disease. Large anterior osteophyte at C5-6.
== END 2018-06-09 11:42 | disposition home or self-care (01) ==
LOC: RAD 11:41
PROVIDERS: ATTEND General Practice
DX: M54.2 Cervicalgia (principal)

== ENCOUNTER 2018-06-16 08:53 | Outpatient (CLI) ==
--- NOTE | 2018-06-16 11:04 | MRI ---
EXAM: MRI cervical spine without IV contrast. DATE: 16 June 2018. HISTORY: Cervicalgia. Neck pain radiating to the right shoulder. TECHNIQUE: Sagittal and axial T1W and T2W sequences of the cervical spine along with sagittal IR and coronal T2W sequences were obtained using 1.2 Nicky magnet. No IV contrast. Anterior coil was not utilized, which may account for grainy appearance on multiple images. There is also motion artifact on some sequences, limiting sensitivity. COMPARISON: C-spine series 06/09/2018. FINDINGS: There is no cervical scoliosis. No acute c-spine fracture, subluxation, osseous malignanc y, or jumped facet is apparent. Large anterior osteophytes are present at C5-6. Smaller osteophytes are visible at C6-7. Cervical vertebrae normal in height. T1W bone marrow signal is similar to alma t of the intervertebral discs, but brighter than the paraspinal muscles. Mild C5-6 and moderate C6-7 disc space narrowing disc space narrowing is detected. Remaining intervertebral discs are normal in height. Cervical and upper thoracic spinal cord reveals no syrinx, cord edema, myelomalacia, or rosalba plasm. Visible brainstem demonstrates a T2W/FLAIR bright, 2 mm x 1 mm focus suspicious for old lacunar infar ct. There is no Chiari 1 malformation. No mastoid disease is detected. Bilateral parotid gland fat ty infiltration is noted.. No definitive parotid, submandibular, or thyroid gland neoplasm is identi fied. Trachea, larynx, and epiglottis are grossly normal. No suspicious neck mass, cervical lymphad enopathy, apical lung mass, pneumonia, or pleural effusion is demonstrated. C2-3: No disc protrusion or central stenosis. Mild right, minor/mild right foraminal narrowing is d ue to uncinate hypertrophy and minor right facet arthropathy. C3-4: Broad posterior disc/osteophyte complex (4 mm AP) does not contact the cord. Canal is 8.2 mm AP. Mild right and moderate/marked left foraminal stenoses due to uncinate hypertrophy and mild face t arthropathy. C4-5: Broad posterior disc/osteophyte complex (3.5 mm AP) causes mild anterior cord flattening. The re is mild ligamentum flavum hypertrophy. Canal is 6.8 mm AP. Marked right and moderate left foramin al stenoses due to uncinate hypertrophy and mild facet arthropathy. C5-6: Broad posterior disc/osteophyte complex (2.6 mm AP) does not contact the cord. Canal is 8.6 m m AP. Mild right and minor left foraminal stenoses due to uncinate hypertrophy and mild right facet arthropathy. C6-7: Broad posterior disc/osteophyte complex (3 mm AP) does not contact the cord. Canal is 8.3 mm AP. Mild left foraminal stenosis is due to uncinate hypertrophy. C7-T1: Minor posterior disc bulge (1.4 mm AP) does not contact the cord. Canal is 12 mm AP. Minor left foraminal narrowing is due to uncinate hypertrophy. T1-2: No disc protrusion or central stenosis. Minor/mild bilateral foraminal stenoses due to facet arthropathy. IMPRESSIONS: 1. C-spine moderate spondylosis, mild facet arthropathy, and multilevel DDD. 2. Multilevel central canal stenoses (C3-4: Mild. C4-5: Marked. C5-6: Mild. C6-7: Mild). 3. Mild cord flattening at C4-5 and C5-6. No syrinx or myelomalacia. 4. Multilevel cervical foraminal stenoses, especially C3-4 and C4-5. Note: Examination limited by technical factors.
== END 2018-06-16 08:54 | disposition home or self-care (01) ==
LOC: RAD 08:53
PROVIDERS: ATTEND General Practice
DX: M54.2 Cervicalgia (principal)

== ENCOUNTER 2018-08-14 00:17 | Emergency (ER) | payer OTHER ==
[2018-08-14 00:29] VITALS: TEMP 98.2; BMI 31.5
--- NOTE | 2018-08-14 00:51 | ED.PDOC ---
General ED Provider: Dr. 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 He has hypertension and is on medications. Previously had a stroke and was afraid he might get another one when his blood pressure became elevated to 164/88 and normally runs in the 130s. Time Seen by Physician: 00:49 Mode of Arrival: Walk-In Information Source: Patient Exam Limitations: No limitations Primary Care [facility] and T[facility] Documentation Reviewed and Agree: Yes Does patient meet sepsis criteria?: No System Inflammatory Response Syndrome: Not Applicable Sepsis Protocol: For patient's 13 years and over: Temp is 96.8 and below OR 101 and greater Pulse >90 BPM Resp >20/minute Acutely Altered Mental Status Are patient's symptoms suggestive of a new infection, such as: -Pneumonia -Skin, Soft Tissue -Endocarditis -UTI -Bone, Joint Infection -Implantable Device -Acute Abdominal Infection -Wound Infection -Meningitis -Blood Stream Catheter Infection -Unknown Miscellaneous Complaint Exam - Complex/Multi-System Complaint/Exam Onset/Duration: tonight Symptoms Are: Still present (but better blood pressure) Location of Pain: Denie any pain Associated Signs and Symptoms: Denies: Decreased responsiveness, Confusion, Agitation, Dizziness, Weakness, Syncope, Headache, Short of air, Cough, Wheezing , Hemoptysis, Chest pain, Palpitations, Edema, Nausea, Vomiting, Diarrhea, Abdominal pain, Back pain, Dysuria, Hematemesis, Melena, Decreased oral intake, Fever, Diaphoresis, Immunocompromised, Anticoagulation Therapy, Recent medication changes, Indwelling medical doctor nuclear medicine, Prior MRSA, Prior VRE, Recent trauma, Remote trauma Recent Echo/LV Function: No Respiratory Distress: None JVD Present: No Tachypnea Present: No Stridor Present: No Abdominal Findings: Present: Normal findings Glascow Coma Scale (see protocol): 15 Meningeal Signs Positive: Yes Focal Weakness: Present: None Focal Sensory Loss: Present: None Quality Indicator For Non-Traumatic Chest Pain/Syncope: EKG Performed Review of Systems - Review Of Systems Constitutional: Reports: No symptoms Eyes: Reports: No symptoms Ears, Nose, Mouth, Throat: Reports: No symptoms Respiratory: Reports: No symptoms Cardiac: Reports: No symptoms GI: Reports: No symptoms : Reports: No symptoms Musculoskeletal: Reports: No symptoms Skin: Reports: Other (felt flushed tonight ) Neurological: Reports: No symptoms Endocrine: Reports: No symptoms Hematologic/Lymphatic: Reports: No symptoms All Other Systems: Reviewed and Negative Past Medical History - Past Medical History Previously Healthy: Yes Endocrine: Reports: DM 2, Dyslipidemia Cardiovascular: Reports: Hypertension Respiratory: Reports: None Hematological: Reports: None Gastrointestinal: Reports: None Genitourinary: Reports: None 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) Musculoskeletal: Reports: None Cancer: Reports: None - Surgical History General Surgical History: Reports: None - Family History Family History: Reports: None - Social History Smoking Status: Never smoker Hx Substance Use: No Alcohol Screening: None - Immunizations Tetanus Shot up to Date: (UNKNOWN) Physical Exam - Physical Exam Appearance: Well-appearing, No pain distress, Well-nourished Eyes: MISA, EOMI, Conjunctiva clear ENT: Ears normal, Nose normal, Oropharynx normal Respiratory: Airway patent, Breath sounds clear, Breath sounds equal, Respirations nonlabored Cardiovascular: RRR, Pulses normal, No rub, No murmur GI/: Soft, Nontender, No masses, Bowel sounds normal, No Organomegaly Musculoskeletal: Normal strength, ROM intact, No edema, No calf tenderness Skin: Warm, Dry, Normal color Neurological: Sensation intact, Motor intact, Reflexes intact, Cranial nerves intact, Alert, Oriented Psychiatric: Anxious Interpretation - Power Line Lineman Rate: Normal Rhythm: Sinus Ectopy: None - EKG Interpretation Time of EKG #1: 00:54 Rate: Normal Rhythm: Sinus Ectopy: None Baker: NL ST Segment: Normal Interpretation: normal EKG Critical Care Note - Critical Care Note Total Time (mins): 0 Course - Course Hematology/Chemistry: 08/14/18 00:55 08/14/18 00:55 Orders, Labs, Meds: Lab Review 08/14/18 08/14/18 00:55 00:55 WBC 10.12 RBC 4.77 Hgb 13.9 L Hct 42.0 MCV 88.1 MCH 29.1 MCHC 33.1 RDW Coeff of Donald 12.5 Plt Count 264 Immature Gran % (Auto) 0.5 Neut % (Auto) 54.7 Lymph % (Auto) 29.4 Haines % (Auto) 11.1 H Eos % (Auto) 3.8 Baso % (Auto) 0.5 Immature Gran # (Auto) 0.1 Neut # (Auto) 5.5 Lymph # (Auto) 3.0 Haines # (Auto) 1.1 Eos # (Auto) 0.4 Baso # (Auto) 0.1 Sodium 139.0 Potassium 4.20 Chloride 104.0 Carbon Dioxide 29.0 Anion Gap 10.20 BUN 19.0 Creatinine 1.00 Estimated GFR (MDRD) 76.00 BUN/Creatinine Ratio 19.00 Glucose 144.0 H Calcium 8.80 Total Bilirubin 0.20 AST 31.0 ALT 13.0 Alkaline Phosphatase 58.0 Total Creatine Kinase 130.0 CK-MB (CK-2) Pending CK-MB (CK-2) % Pending Troponin I < 0.010 Total Protein 7.10 Albumin 4.10 Globulin 3.00 Albumin/Globulin Ratio 1.36 Orders Category Date Time Status EKG-(ED ONLY) Stat CARDIO 08/14/18 00:48 Completed CBC W/ AUTO DIFF Stat LAB 08/14/18 00:55 Completed COMPREHENSIVE METABOLIC PANEL Stat LAB 08/14/18 00:55 Results CREATINE KINASE Stat LAB 08/14/18 00:55 Results TROPONIN I Stat LAB 08/14/18 00:55 Results Vital Signs: Temp Pulse Resp BP Pulse Ox 08/14/18 02:15 73 16 135/79 94 L 08/14/18 00:18 98.2 F 79 18 144/75 H 95 Departure - Departure Time of Disposition: 02:15 Disposition: HOME SELF-CARE Discharge Problem: Hypertension Qualifiers: Hypertension type: essential hypertension Qualified Code(s): I10 - Essential ( primary) hypertension Instructions: Hypertension (ED) Condition: Stable Pt referred to PMD for follow-up: Yes IPMP verified?: No Additional Instructions: Continue home meds Try not to get upset as this can increase your blood pressure. 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 Elevates blood pressure as well. metformin Adverse Reaction (Severe, Verified 08/14/18 00:30) Diarrhea Home Medications: Ambulatory Orders Acetaminophen [Tylenol] 650 mg PO BID #120 tab-cap 02/28/18 Disposition Discussed With: Patient
[2018-08-14 02:23] VITALS: BP 135/79
== END 2018-08-14 02:30 | disposition home or self-care (01) ==
LOC: ED 00:17
DX: I10 Essential (primary) hypertension (principal); Z86.73 Personal history of transient ischemic attack (TIA), and cerebral infarction without residual deficits; E11.9 Type 2 diabetes mellitus without complications; E78.5 Hyperlipidemia, unspecified
CPT/HCPCS: 36415; 80053; 82550; 82553; 84484; 85025; 93005; 93010; 99283

== ENCOUNTER 2018-10-26 10:00 | Outpatient (RCR) ==
--- NOTE | 2018-10-13 16:50 | RS.OPPTEV2 ---
Date of Note: 10/13/18 Visit #: 1 Number of visits approved by Insurance: pending Date of Evaluation: 10/13/18 Payer Source: Medicaid Surgery Performed?: No Treatment Diagnosis: cervical radiculopathy, cervical disc disorder History of Condition/Mechanism of Injury:: pt states that his pain began 2017. pt reports he does not know of any specific injury. Prior Level of Function.....Patient was independent with: ADL's, Self Care, Ambulation/Mobility, Community Integration/Access Functional Limitations: Sleep, Pushing, Pulling, Lifting, Carrying Current Subjective/complaints:: pt reports that the pain keeps him awake at night and he is not getting any sleep. Reports that he is having radiating pain into R shld. Treatment Side (optional): N/A *Precautions: h/o CVA Medical History Medical History: Hypertension, CVA/TIA, Diabetes Surgical History Comments:: appey Smoking Status: Never smoker Diagnostic Testing/Imaging:: MRI of cervical spine 06/16/18: cspine moderate spondylosis, mild facet arthropath and multilevel DDD, multilevel central canal stenosis, mild cord flattening at C4-C5, C5-C6, multilevel cervical foraminal stenosis. Hx Home Medications: plavix Patient's Goals: decrease neck pain Pain Assessment - Pain Description Pain Location: cervical spine radiating into R UE Pain Description: Burning, Radiating, Sharp Current Pain Intensity: 3/10 at rest increases with ROM Functional Outcome Measure Neck Disability Index: 12 - G Codes & Severity Modifier G Codes & Modifier: n/a Source of G Code score: n/a Observation - Observation Posture: Forward Head, Rounded Shoulders, Decreased Cervical Lordosis Handedness: Right Gait - Gait Pattern Gait Comments: pt amb with increased circumduction of L hip to clear due to CVA. General Muscle Strength: LUE shld flex 3+/5, elbow flex/ext 4/5,. RUE shld flex 5/5, elbow flex/ext 5/5. RLE 5/5, LLE hip flex 4-/5, knee flex/ext 4/5, ankle DF/PF 3-/5 - ROM Cervical Spine Range of Motion Limitations: Muscle Weakness, Pain Comments: cervical flex WFL's. cervical ext somewhat limted with increased pain. cervical rotation to R limited with pain. pt with sharp radiucular pain with cervical ext and R rotation - Strength Cervical Extension: 3- Fair- Cervical Flexion: 3+ Fair+ Cervical Lateral Flexion: 3- Fair- Cervical Rotation: 3- Fair- - Special Tests Foraminal Distraction: Negative Foraminal Compression: Negative Left, Negative Right Palpation Palpation Findings: Tenderness, Trigger Point, Muscle Guarding Comments:: tenderness and trigger points noted in R upper trap as well as R cervical spine. pt also with muscle guarding noted in cervical paraspinal muscles. Sensation - Sensation Right Upper Extremity: Intact/Normal Left Upper Extremity: Intact/Normal Right Lower Extremity: Intact/Normal Left Lower Extremity: Intact/Normal Balance - Sitting Balance Static Sitting Balance: Normal Dynamic Sitting Balance: Normal - Standing Balance Static Standing Balance: Normal Dynamic Standing Balance: Normal - Treatment Modality: Electrical Stim Unattended Parameters/Method Applied: IFC x 20mins at 9ma Treatment Area: R cervical spine Patient Position: Sitting - Heat/Cryotherapy Treatment: Hot Pack Interventions - Exercise/Activities/Manual Therapy Exercises/Activities: pt performed cervical retraction, scapular retraction, modified corner stretch (on R side due to CVA) Manual Therapy: NA HOME EXERCISE PROGRAM: pt given written HEP including cervical retraction, modified corner stretch, scapular retraction - Charges Timed Code Treatment Minutes: 49 Total Treatment Time: 65 Procedures billed for this date of service:: eval med, estim, hot pack EVALUATION COMPLEXITY LEVEL EVALUATION COMPLEXITY LEVEL: HISTORY: Medium (DM, late effect CVA, HTN, ), EXAM OF BODY SYSTEMS: Medium (posture, strength, ROM, pain, ), CLINICAL PRESENTATION : Medium, CLINICAL DECISION MAKING: Medium Assessment Assessment: pt presents with decreased strength, ROM, muscle tightness, radicular pain, as well as postural deficits. Feel pt would benefit from skilled PT for therex for ROM, stretching, traction, strengthening to improve functional ability. Patient Education: Home Exercise Program, Education of Plan of Care Rehab Potential: Good Short Term Goals Goal #1: pt independent with initial HEP Goal to be met by: 10/27/18 Goal #2: Improve cervical ROM WFL's Goal to be met by: 10/27/18 Goal #3: pt rate pain < 3/10 at rest Goal to be met by: 10/27/18 Activity Aide Goals Goal #1: pt with report able to sleep uninterrupted x 4 hours Goal to be met by: 11/10/18 Goal #2: pt report no radicular pain into R UE Goal to be met by: 11/10/18 Goal #3: pt report increased ability to perform daily activities with less pain Goal to be met by: 11/10/18 Goal #4: . Plan - Treatment to be Provided Procedures: Therapeutic Exercises, Manual Therapy, Massage, Patient Education Modalities: Electrical Stimulation, Ultrasound/Phonophoresis, Cryotherapy, Hot Packs, Mechanical Traction - Treatment Plan Frequency: 2 X week Duration: 4 weeks Dates of Shelter Goals: 11/10/18 Expiration date of current Insurance Approval:: pending - Treatment Code (1) Radiculopathy of cervical region Code(s): M54.12 - RADICULOPATHY, CERVICAL REGION (2) Cervical disc disorder at C4-C5 level with radiculopathy Code(s): M50.121 - CERVICAL DISC DISORDER AT C4-C5 LEVEL WITH RADICULOPATHY (3) Muscle tightness Code(s): M62.89 - OTHER SPECIFIED DISORDERS OF MUSCLE
--- NOTE | 2018-10-17 11:49 | RS.OPPTDN ---
Subjective Date of Note: 10/17/18 Visit #: 2 Number of visits approved by Insurance: Pending Date of Evaluation: 10/13/18 Payer Source: Medicaid Treatment Diagnosis: cervical radiculopathy, cervical disc disorder Current Subjective/complaints:: Patient report neck pain that limits his ability to get comfortable when lying down. Reports tingling into right shoulder and down arm with trigger point work to the right cervical paraspinals and traps. Reports no pain when walking out of department, and states he has increase flexibility. *Precautions: h/o CVA Pain Assessment - Pain Description Pain Location: neck, right UE Pain Description: Sharp, Aching Pain Description: Tingling Current Pain Intensity: neck 2/10 in sitting Worst Pain Intensity: 7-8/10 with extension in supine Other Comments regarding Pain:: Patient reports no pain in sitting or walking in department following treatment. - Treatment Modality: Electrical Stim Unattended Parameters/Method Applied: [id number] HVGC to 120-125 p.v. with 4 small pads to the bilateral cervical paraspinals and trap trigger points with HP prior to MT and EX. Patient Position: Supine - Heat/Cryotherapy Treatment: Hot Pack (with Estim ) Interventions - Exercise/Activities/Manual Therapy Exercises/Activities: Assisted lateral cervical flexion. Manually resisted scapular retraction. Cervical retraction, scapular retraction. Doorway pectoralis stretch with assist. Beginning position for wall angels for postural correction. Green theraband for scapular retraction. Patient given copy of new exercises. Total minutes of Exercise: 15mins Manual Therapy: [id number] Trigger point release work to the bilateral cervical paraspinals and traps, with focus on the right side. Patient has active trigger points at the mid right cervical paraspinals and the distal traps. Total minutes of Manual Therapy: 12mins HOME EXERCISE PROGRAM: pt given written HEP including cervical retraction, modified corner stretch, scapular retraction. Start position os wall angels for postural correction. Green theraband for scapular retraction. - Charges Timed Code Treatment Minutes: 27mins Total Treatment Time: 47mins Procedures billed for this date of service:: HP, Estim unattended, MT, EX Assessment: Patient with increased muscle tone and active trigger points. He responds well to treatment with reports of decreasead pain and increase in flexibility. Patient Education: Education of diagnosis, Body/Joint mechanics, Home Exercise Program Comments: Patient educated in dx, spinal mechanics, and HEP reviewed. Patient demonstrates compliance with HEP?: Yes Short Term Goals Goal #1: pt independent with initial HEP Goal to be met by: 10/27/18 Progress towards Goal:: Progressing Goal #2: Improve cervical ROM WFL's Goal to be met by: 10/27/18 Goal #3: pt rate pain < 3/10 at rest Goal to be met by: 10/27/18 Progress towards Goal:: Progressing Goal #4: Patient will Snf Goals Goal #1: pt with report able to sleep uninterrupted x 4 hours Goal to be met by: 11/10/18 Goal #2: pt report no radicular pain into R UE Goal to be met by: 11/10/18 Goal #3: pt report increased ability to perform daily activities with less pain Goal to be met by: 11/10/18 Goal #4: . Plan Dates of Snf Goals: 11/10/18 Expiration date of current Insurance Approval:: 11/10/18 PLAN: Continue modalities, manual therapy, and progressive postural exercise to reduce pain and increase functional activity level.
--- NOTE | 2018-10-19 11:34 | RS.OPPTDN ---
Subjective Date of Note: 10/19/18 Visit #: 3 Number of visits approved by Insurance: pending Date of Evaluation: 10/13/18 Payer Source: Medicaid Treatment Diagnosis: cervical radiculopathy, cervical disc disorder Current Subjective/complaints:: Patient reports little to no neck pain following last treatment. States this lasted all evening, but pain increased when trying to lay down to sleep. States he cannot find a comofortable position in bed. *Precautions: h/o CVA Pain Assessment - Pain Description Pain Location: neck, right UE Pain Description: Tightness, Sharp, Aching Current Pain Intensity: 1-2/10 Worst Pain Intensity: 6-7/10 at night - Treatment Modality: Electrical Stim Unattended Parameters/Method Applied: [id number] HVGC to 120p.v. with 4 small pads to bilateral cervical parspinals and trap trigger points with HP prior to EX. Patient Position: Sitting - Heat/Cryotherapy Treatment: Hot Pack (with Estim ) Interventions - Exercise/Activities/Manual Therapy Exercises/Activities: Assisted lateral cervical flexion. Manually resisted scapular retraction, multiple reps. Began manually resisted isometric lateral cervical flexion, 4s/5reps and isometric shoulder extension 3s/5reps. Cervical retraction, scapular retraction. Worked on postural correction with beginning wall ameya position. Black theraband for scapular retraction and chest press. Instructed in supine postural correction and anterior chest stretch, progressing to towel roll between scapula. Total minutes of Exercise: 12mins Manual Therapy: [id number] Trigger point release work to the bilateral cervical paraspinals and traps, with focus on the right side. Patient has active trigger points at the mid right cervical paraspinals and the distal traps. Total minutes of Manual Therapy: 14mins HOME EXERCISE PROGRAM: pt given written HEP including cervical retraction, modified corner stretch, scapular retraction. Start position os wall angels for postural correction. Green theraband for scapular retraction. - Charges Timed Code Treatment Minutes: 26mins Total Treatment Time: 46mins Procedures billed for this date of service:: HP, Estim unattended, MT, EX Assessment: Patient reporting a good response to last treatment. Patient motivated to work on HEP as instructed. Patient should benefit from progressive postural correction. Patient Education: Education of diagnosis, Body/Joint mechanics, Home Exercise Program Comments: Focus of patient education is cervical mechanics and postural correction. 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 Plan Dates of Newspaper Distributor Supervisor Goals: 11/10/18 Expiration date of current Insurance Approval:: 11/10/18 PLAN: Continue modalities, MT, and progressive EX to reduce pain and increase functional activity level.
--- NOTE | 2018-10-24 11:31 | RS.OPPTDN ---
Subjective Date of Note: 10/24/18 Visit #: 4 Number of visits approved by Insurance: NA Date of Evaluation: 10/13/18 Payer Source: Medicaid Treatment Diagnosis: cervical radiculopathy, cervical disc disorder Current Subjective/complaints:: Patient reports he is able to get in a few comfortable positions in bed, which is an improvement. He also reports soreness with trigger point work, but no right UE radicular pain today. States he is working on HEP. *Precautions: h/o CVA Pain Assessment - Pain Description Pain Location: neck Pain Description: Tightness, Aching Current Pain Intensity: mild to mod - Treatment Modality: Electrical Stim Unattended Parameters/Method Applied: [id number] HVGC to 125p.v. with 4 small pads to the bilateral cervical paraspinals and trap trigger points with HP prior to MT and EX. Patient Position: Sitting - Heat/Cryotherapy Treatment: Hot Pack (with Estim ) Interventions - Exercise/Activities/Manual Therapy Exercises/Activities: Assisted lateral cervical flexion. Manually resisted cervical retraction and lateral flexion, multiple reps. Cervical retraction, scapular retraction. Worked on postural correction in wall ameya position, with attempted correction of cervical posture. Isometric shoulder extension at wall. Blue theraband for scapular retraction. 5# wand bilateral shoulder flexion, 2s /10reps. Total minutes of Exercise: 10mins Manual Therapy: [id number] Trigger point release work to the bilateral cervical paraspinals and traps, with focus on the right side. Patient has active trigger points at the mid right cervical paraspinals and the distal traps. Total minutes of Manual Therapy: 14mins HOME EXERCISE PROGRAM: pt given written HEP including cervical retraction, modified corner stretch, scapular retraction. Start position os wall angels for postural correction. Green theraband for scapular retraction. - Charges Timed Code Treatment Minutes: 24mins Total Treatment Time: 44mins Procedures billed for this date of service:: HP, Estim unattended, MT, EX Assessment: Patient progressing with HEP and reporting reduction in pain and radicular symptoms. Patient Education: Body/Joint mechanics, Home Exercise Program Patient demonstrates compliance with HEP?: Yes Short Term Goals Goal #1: pt independent with initial HEP Goal to be met by: 10/27/18 Progress towards Goal:: Progressing Goal #2: Improve cervical ROM WFL's Goal to be met by: 10/27/18 Progress towards Goal:: Progressing Goal #3: pt rate pain < 3/10 at rest Goal to be met by: 10/27/18 Progress towards Goal:: Progressing Usp Goals Goal #1: pt with report able to sleep uninterrupted x 4 hours Goal to be met by: 11/10/18 Goal #2: pt report no radicular pain into R UE Goal to be met by: 11/10/18 Progress towards goal: Progressing Goal #3: pt report increased ability to perform daily activities with less pain Goal to be met by: 11/10/18 Progress towards goal: Progressing Goal #4: . Plan Dates of Principal System Software Engineer Goals: 11/10/18 Expiration date of current Insurance Approval:: 11/10/18 PLAN: Continue modalities and porgress exercise to reduce pain and increase functional activity level.
--- NOTE | 2018-10-26 11:25 | RS.OPPTDN ---
Subjective Date of Note: 10/26/18 Visit #: 5 Number of visits approved by Insurance: Pending Date of Evaluation: 10/13/18 Payer Source: Medicaid Treatment Diagnosis: cervical radiculopathy, cervical disc disorder Current Subjective/complaints:: Patient reports improvement in neck pain and radicular symptoms with daily activities. States he continues to have difficulty getting comfortable at night. Patient states he would like to try mechanical traction as discussed at Evaluation. *Precautions: h/o CVA Pain Assessment - Pain Description Pain Location: neck, right UE Pain Description: Tightness, Radiating, Aching Current Pain Intensity: no pain in sitting, standing Worst Pain Intensity: mod to high in supine - Treatment Modality: Electrical Stim Unattended Parameters/Method Applied: [id number] HVGC to 130p.v. with 4 small pads to the bilateral cervical paraspinals and trap trigger points with HP prior to TX. - Heat/Cryotherapy Treatment: Hot Pack (with Estim ) - Traction Treatment Method: Mechanical, Intermittent, Cervical Patient Position: Supine Amount of Force Applied: 19-22# Hold Time: 35sec Rest Time: 5sec Duration of treatment: 12mins Traction Treatment Comment: Table adjusted to increase cervical flexion for patient comfort. Patient repositions right UE frequently and assisted with manual distraction, both to reduce radicular pain during traction. Interventions - Exercise/Activities/Manual Therapy Exercises/Activities: Assited lateral flexion stretching. Discussion of HEP. Total minutes of Exercise: 2mins Manual Therapy: x5mins Trigger point release work to the right cervical paraspinals and the middle and distal trap trigger points. Patient has active trigger points at the mid right cervical paraspinals and the distal traps again today. Total minutes of Manual Therapy: 5mins HOME EXERCISE PROGRAM: pt given written HEP including cervical retraction, modified corner stretch, scapular retraction. Start position os wall angels for postural correction. Green theraband for scapular retraction. - Charges Timed Code Treatment Minutes: 7mins Total Treatment Time: 39mins Procedures billed for this date of service:: HP, Estim unattended, TX mechanical Assessment: Patient reporting slow but steady progress with neck pain and UE radicular symptom reduction when he is up during the day. It is improtant that patient increase functional independence as he lives alone. Patient Education: Body/Joint mechanics, Home Exercise Program Patient demonstrates compliance with HEP?: Yes Short Term Goals Goal #1: pt independent with initial HEP Goal to be met by: 10/27/18 Progress towards Goal:: Met Goal #2: Improve cervical ROM WFL's Goal to be met by: 10/27/18 Progress towards Goal:: Progressing Goal #3: pt rate pain < 3/10 at rest Goal to be met by: 10/27/18 Progress towards Goal:: Progressing Goal #4: Patient will Sorter Operator Goals Goal #1: pt with report able to sleep uninterrupted x 4 hours Goal to be met by: 11/10/18 Progress towards goal: Progressing Goal #2: pt report no radicular pain into R UE Goal to be met by: 11/10/18 Progress towards goal: Progressing Goal #3: pt report increased ability to perform daily activities with less pain Goal to be met by: 11/10/18 Progress towards goal: Progressing Goal #4: . Plan Dates of Sorter Operator Goals: 11/10/18 Expiration date of current Insurance Approval:: 11/10/18 PLAN: Continue modalities and progress exercise to reduce pain and radicular symptoms to increase functional activity level.
== END 2018-10-26 23:59 | disposition short-term general hospital (02) ==
PROVIDERS: ATTEND Orthopaedic Surgery
DX: M54.12 Radiculopathy, cervical region (principal); M50.121 Cervical disc disorder at C4-C5 level with radiculopathy; M54.2 Cervicalgia

== ENCOUNTER 2018-11-07 10:00 | Outpatient (RCR) ==
--- NOTE | 2018-10-31 13:35 | RS.OPPTDN ---
Subjective Date of Note: 10/31/18 Visit #: 6 Number of visits approved by Insurance: Pending Date of Evaluation: 10/13/18 Payer Source: Medicaid Treatment Diagnosis: cervical radiculopathy, cervical disc disorder Current Subjective/complaints:: Patient reports he is seeing improvement in neck pain and in right UE radicular symptoms. States he does not think cervical traction helped, but modalities, manual therapy, and exercises are helping. States he continues to have pain and radicular symptoms that limit his sleep, but this is "slightly better". *Precautions: h/o CVA Pain Assessment - Pain Description Pain Location: neck, right UE Pain Description: Radiating, Aching Current Pain Intensity: low, in sitting Other Comments regarding Pain:: Reports pain into right UE with exercise and with trigger point work. Cervical retraction alos increases radicular symptoms. - Treatment Modality: Electrical Stim Unattended Parameters/Method Applied: [id number] HVGC to 135p.v. with 4 small pads to the bilateral cervical paraspinals and upper traps trigger points with HP prior to MT. Patient Position: Supine - Treatment Modality: (with Estim) - Heat/Cryotherapy Treatment: Hot Pack Interventions - Exercise/Activities/Manual Therapy Exercises/Activities: Assited lateral flexion stretching. Active and manually resisted cervical retraction. Blue theraband for scap retraction. Began resisted cervical retraction with green theraband with elbows on table. Postural correction at wall, added small foam roller to support spine during retraction. Discussion of cervical spinal mechanics. Total minutes of Exercise: 10mins Manual Therapy: 14mins Trigger point release work to the right cervical paraspinals and the middle and distal trap trigger points. Patient has active trigger points at the mid right cervical paraspinals and the distal traps again today. Also, myofascial stretching of bilateral cervical paraspinals and upper traps. Total minutes of Manual Therapy: 14mins HOME EXERCISE PROGRAM: pt given written HEP including cervical retraction, modified corner stretch, scapular retraction. Start position os wall angels for postural correction. Green theraband for scapular retraction. - Charges Timed Code Treatment Minutes: 24mins Total Treatment Time: 44mins Procedures billed for this date of service:: HP, Estim unattended, MT, EX Assessment: Patient reporting progress in pain, activity level, and radicular sypmtoms. He continues to have pain and radicular symptoms limiting his sleep at night, but states it is slightly better. Patient Education: Body/Joint mechanics, Home Exercise Program, Activity Modification Patient demonstrates compliance with HEP?: Yes Short Term Goals Goal #1: pt independent with initial HEP Goal to be met by: 10/27/18 Progress towards Goal:: Met Goal #2: Improve cervical ROM WFL's Goal to be met by: 10/27/18 Progress towards Goal:: Met Comments:: bilateral cervical flexion and rotation are both WFL's. Goal #3: pt rate pain < 3/10 at rest Goal to be met by: 10/27/18 Progress towards Goal:: Met Goal #4: . Seam Closer Goals Goal #1: pt with report able to sleep uninterrupted x 4 hours Goal to be met by: 11/10/18 Progress towards goal: Progressing Goal #2: pt report no radicular pain into R UE Goal to be met by: 11/10/18 Progress towards goal: Progressing Goal #3: pt report increased ability to perform daily activities with less pain Goal to be met by: 11/10/18 Progress towards goal: Progressing Goal #4: . Plan Dates of Seam Closer Goals: 11/10/18 Expiration date of current Insurance Approval:: 11/10/18 PLAN: Continue modalities, manual therapy, and progressive postural correction exercise to reduce pain and increase functional activity level.
--- NOTE | 2018-11-02 15:40 | RS.OPPTDN ---
Subjective Date of Note: 11/02/18 Visit #: 7 Number of visits approved by Insurance: Pending Date of Evaluation: 10/13/18 Payer Source: Medicaid Treatment Diagnosis: cervical radiculopathy, cervical disc disorder Current Subjective/complaints:: Patient reports he is doing a little better with daily activities and sleeping has also improved. *Precautions: h/o CVA Pain Assessment - Pain Description Pain Location: neck and right UE Pain Description: Radiating Current Pain Intensity: no pain at rest Worst Pain Intensity: 6-7/10 Other Comments regarding Pain:: Patient reports pain and radicular symptoms increase in certain positions, especially when lying down at night. - Treatment Modality: Electrical Stim Unattended Parameters/Method Applied: [id number] HVGC to 140p.v. with 4 small pads to bilateral cervical paraspinals and upper traps with HP. Patient Position: Sitting - Heat/Cryotherapy Treatment: Hot Pack (with Estim ) Interventions - Exercise/Activities/Manual Therapy Exercises/Activities: Assited lateral flexion stretching. Active and manually resisted cervical retraction. Blue theraband for scap retraction. Therapist assisted resisted cervical retraction with red theraband. Postural correction at wall with foam roller to support spine during retraction. Then postural alignment with small bolster along the thoracic spine. Therapist assisted passive anterior chest/pec stretch. Total minutes of Exercise: 10mins Manual Therapy: 17mins Trigger point release work to the right cervical paraspinals and the middle and distal trap trigger points. Patient has active trigger points at right upper trap trigger point. Also, myofascial stretching of bilateral cervical paraspinals and upper traps. Total minutes of Manual Therapy: 17mins HOME EXERCISE PROGRAM: pt given written HEP including cervical retraction, modified corner stretch, scapular retraction. Start position os wall angels for postural correction. Green theraband for scapular retraction. - Charges Timed Code Treatment Minutes: 27mins Total Treatment Time: 49mins Procedures billed for this date of service:: HP, Estim unattended, MT, EX Assessment: Patient reports improvement in intensity of pain and ability to rest a little better at night, but continued radicular pain limiting sleep and daily aactivity level. Patient may be at a plateau in progress, but will need to continue work on HEP to correct posture. Patient Education: Home Exercise Program, Activity Modification, Education of Plan of Care Patient demonstrates compliance with HEP?: Yes Short Term Goals Goal #1: pt independent with initial HEP Goal to be met by: 10/27/18 Progress towards Goal:: Met Goal #2: Improve cervical ROM WFL's Goal to be met by: 10/27/18 Progress towards Goal:: Met Goal #3: pt rate pain < 3/10 at rest Goal to be met by: 10/27/18 Progress towards Goal:: Met Goal #4: . Driver Helper Goals Goal #1: pt with report able to sleep uninterrupted x 4 hours Goal to be met by: 11/10/18 Progress towards goal: Progressing Goal #2: pt report no radicular pain into R UE Goal to be met by: 11/10/18 Progress towards goal: Progressing Goal #3: pt report increased ability to perform daily activities with less pain Goal to be met by: 11/10/18 Progress towards goal: Progressing Goal #4: . Plan Dates of Driver Helper Goals: 11/10/18 Expiration date of current Insurance Approval:: 11/10/18 PLAN: Continue next week and reassess progress.
--- NOTE | 2018-11-08 16:25 | RS.OPPTDN ---
Subjective Date of Note: 11/07/18 Visit #: 8 Number of visits approved by Insurance: PENDING Date of Evaluation: 10/13/18 Payer Source: Medicaid Treatment Diagnosis: cervical radiculopathy, cervical disc disorder Current Subjective/complaints:: Patient reports treatment has helped his pain level and he is sleeping much better. States he will continue HEP. *Precautions: h/o CVA Pain Assessment - Pain Description Pain Location: Neck, right UE Pain Description: Aching Current Pain Intensity: Neck low, right UE no pain at rest - Treatment Modality: Electrical Stim Unattended Parameters/Method Applied: [id number] HVGC to 155p.v. with 4 small pads to the bialteral cervical paraspinals and upper traps with HP prior to MT and EX. Patient in sitting. Patient Position: Sitting - Heat/Cryotherapy Treatment: Hot Pack (with Estim ) Interventions - Exercise/Activities/Manual Therapy Exercises/Activities: Assited lateral flexion stretching. Active and manually resisted cervical retraction. Blue theraband for scap retraction. Therapist resisted cervical retraction. Postural correction at wall and therapist assisted passive anterior chest stretch. Then postural alignment with small bolster along the thoracic spine. Reviewed all HEP in preparation for discharge. Total minutes of Exercise: 13mins Manual Therapy: 18mins Trigger point release work to the right cervical paraspinals and the middle and distal trap trigger points. Patient has latenet trigger point at right upper cervical paraspinals. Only reports soreness at the right trap trigger point. Also, myofascial stretching of bilateral cervical paraspinals, levator scap, and upper traps. Total minutes of Manual Therapy: 18mins HOME EXERCISE PROGRAM: pt given written HEP including cervical retraction, modified corner stretch, scapular retraction. Start position os wall angels for postural correction. Green theraband for scapular retraction. - Charges Timed Code Treatment Minutes: 31mins Total Treatment Time: 51mins Procedures billed for this date of service:: HP, Estim unattended, MT, EX Assessment: Patient has progressed well and benefitted from treatment. He has met his STG's and is independent with HEP. He has completed initial POC. Patient Education: Home Exercise Program Patient demonstrates compliance with HEP?: Yes Short Term Goals Goal #1: pt independent with initial HEP Goal to be met by: 10/27/18 Progress towards Goal:: Met Goal #2: Improve cervical ROM WFL's Goal to be met by: 10/27/18 Progress towards Goal:: Met Goal #3: pt rate pain < 3/10 at rest Goal to be met by: 10/27/18 Progress towards Goal:: Met Goal #4: . Bracelet And Brooch Maker Goals Goal #1: pt with report able to sleep uninterrupted x 4 hours Goal to be met by: 11/10/18 Progress towards goal: Progressing Goal #2: pt report no radicular pain into R UE Goal to be met by: 11/10/18 Progress towards goal: Progressing Goal #3: pt report increased ability to perform daily activities with less pain Goal to be met by: 11/10/18 Progress towards goal: Progressing Goal #4: . Plan Dates of Bracelet And Brooch Maker Goals: 11/10/18 Expiration date of current Insurance Approval:: 11/10/18 PLAN: Discharge with HEP.
--- NOTE | 2018-11-08 16:27 | RS.QUICKDC ---
Discharge from PT Date of Discharge: 11/08/18 Number of Visits: 8 Reason for Discharge: Patient completed POC of 8 sessions and progressed with treatment. He reported a decrease in pain and improvement in sleeping at night. He met all STG's and was independent with HEP. Discharge wt HEP.
== END 2018-11-23 23:59 ==
PROVIDERS: ATTEND Orthopaedic Surgery
DX: M54.12 Radiculopathy, cervical region (principal); M50.121 Cervical disc disorder at C4-C5 level with radiculopathy; M54.2 Cervicalgia

== ENCOUNTER 2019-01-23 09:57 | Outpatient (RCR) ==
--- NOTE | 2019-01-23 14:32 | RS.OPPTEV2 ---
Date of Note: 01/23/19 Visit #: 1 Number of visits approved by Insurance: pending Date of Evaluation: 01/23/19 Payer Source: Medicaid Surgery Performed?: No Treatment Diagnosis: Cervicalgia, radiating pain into right UE History of Condition/Mechanism of Injury:: States his symptoms in the neck and right UE began in 2017 without any known injury or cause. He attended 8 therapy sessions of therapy in September and October 2018. States therapy helped then to help his sleep and reduced his right UE symptoms. He continues to have daily RUE symptoms and interrupted sleep, so his doctor wanted him to try more therapy. Prior Level of Function.....Patient was independent with: ADL's, Self Care, Ambulation/Mobility, Community Integration/Access Functional Limitations: Sleep, ADL's, Pushing, Pulling, Lifting Current Subjective/complaints:: Patient reports his doctor wanted him to have more therapy, including traction and exercises. States his radiating pain is happening daily, especially with any cervical extension past neutral. States the radiating pain is stopping at his elbow. He denies weakness in the right UE. States he has occasional headaches. He takes four Acetaminophen a day for his left shoulder. States he has some difficulty performing stretching at home due to left hemiparesis from CVA. States he has some stiffness in his neck that he notices while driving. Reports having to turn with his body when he has to turn his neck all the way to his right. Treatment Side (optional): Right *Precautions: h/o CVA Medical History Medical History: Hypertension, CVA/TIA, Diabetes Surgical History Comments:: Appendectomy Smoking Status: Never smoker Hx Home Medications: plavix, lipitor, Tradjenta, Zestril Patient's Goals: His goal is to get further relief of his right UE pain. Pain Assessment - Pain Description Pain Location: right UE, from neck to elbow Current Pain Intensity: 3/10 Worst Pain Intensity: 6/10 Functional Outcome Measure Neck Disability Index: 16 - G Codes & Severity Modifier G Codes & Modifier: NA Source of G Code score: NA Observation - Observation Posture: Forward Head, Scapula Asymmetry (left scapular elevated) Handedness: Right - ROM Comments: Cervical AROM is WFL's. Reports tightness in the back of the neck with end range cervical rotation to his right. Right UE AROM is WFL's. Demonstrates limited use of left UE due to CVA years ago. - Strength Cervical Extension: 4 Good Cervical Flexion: 4 Good Cervical Lateral Flexion: 4 Good Comments: Right UE 5/5 throughout, including Serratus anterior. Left UE generally 2+/5 elbow, shoulder 3-/5. - Special Tests Foraminal Distraction: Negative Foraminal Compression: Negative Left, Negative Right Thoracic Outlet Test: Negative Right Palpation Comments:: Demonstrates moderate increased muscle tone in the left upper traps, slight increased muscle tone in the right. Reports no tenderness with palpation throughout the upper traps, middle traps, or along the cervical spine or paraspinals. No trigger points found along superior or medial border of the right scapula. Sensation - Sensation Comments: Reports intact sensation along the right UE. - Heat/Cryotherapy Treatment: Hot Pack Comments:: X 15 mins to cervical spine prior to traction - Traction Treatment Method: Mechanical, Intermittent, Cervical Patient Position: Supine Amount of Force Applied: 20-21 lbs. Hold Time: 30 sec Rest Time: 5 sec Duration of treatment: 9 mins Interventions - Exercise/Activities/Manual Therapy Exercises/Activities: Discussed corner stretch. States he has difficulty hold his left UE up on the wall to perform it. Advised he try a doorway stretch with his arms lower, can also stretch the pecs. Advised him to perform scapular retraction and cervical retraction as well. Manual Therapy: none today HOME EXERCISE PROGRAM: cervical and scapular retraction, doorway stretch with arms below shoulder height. - Charges Timed Code Treatment Minutes: 5 mins Total Treatment Time: 59 mins Procedures billed for this date of service:: EVAL Low, mechanical traction EVALUATION COMPLEXITY LEVEL EVALUATION COMPLEXITY LEVEL: HISTORY: Medium (Hx CVA, HTN,Diabetes), EXAM OF BODY SYSTEMS: Low (Neck and right UE ROM, MS, sensation), CLINICAL PRESENTATION : Low, CLINICAL DECISION MAKING: Low Assessment Assessment: Mr. Earl presents to therapy with a diagnosis of neck pain and right UE radiating symptoms. He had therapy a few months ago, which helped his symptoms. He and his physician hope that further skilled therapy will help him gain further resolution of his radiating symptoms. He reports daily right shoulder pain to the elbow and interrupted sleep. He is a great candidate to get further relief of his symptoms with use of cervical traction and postural strengthening. Patient Education: Education of diagnosis, Body/Joint mechanics, Education of Plan of Care Rehab Potential: Good Short Term Goals Goal #1: Pt able to perform ex's for home independently. Goal to be met by: 02/06/19 Goal #2: Patient will demonstrate improved postural awareness. Goal to be met by: 02/06/19 Goal #3: RUE radiating pain frequency less than daily. Goal to be met by: 02/06/19 Goal #4: . [employer] Weapon System Operator Goals Goal #1: Pt Independent with HEP & understands to cont. ex's after D/C. Goal to be met by: 02/27/19 Goal #2: Score on Neck Disability Index score improved to 10. Goal to be met by: 02/27/19 Goal #3: Pt will sleep through the night with min. interruption from neck/RUE pain. Goal to be met by: 02/27/19 Goal #4: . Plan - Treatment to be Provided Procedures: Therapeutic Exercises, Therapeutic Activity, Patient Education ( postural education/HEP) Modalities: Electrical Stimulation, Ultrasound/Phonophoresis, Cryotherapy, Hot Packs, Mechanical Traction - Treatment Plan Frequency: 2 X week Duration: 4 weeks Dates of [employer] Weapon System Operator Goals: 02/27/19 Expiration date of current Insurance Approval:: pending - Treatment Code (1) Cervical disc disorder at C4-C5 level with radiculopathy Code(s): M50.121 - CERVICAL DISC DISORDER AT C4-C5 LEVEL WITH RADICULOPATHY Comments: M50.121 (2) Cervicalgia Code(s): M54.2 - CERVICALGIA Comments: M54.2
== END 2019-01-23 23:59 ==
PROVIDERS: ATTEND Orthopaedic Surgery
DX: M50.121 Cervical disc disorder at C4-C5 level with radiculopathy (principal); M54.2 Cervicalgia; M54.12 Radiculopathy, cervical region

== ENCOUNTER 2019-02-15 11:00 | Outpatient (RCR) ==
--- NOTE | 2019-01-26 11:47 | RS.OPPTDN ---
Subjective Date of Note: 01/26/19 Visit #: 2 Number of visits approved by Insurance: 8, pending Date of Evaluation: 01/23/19 Payer Source: Medicaid Treatment Diagnosis: Cervicalgia, radiating pain into right UE Current Subjective/complaints:: Patient says traction gave him relief at his last session (EVAL). States he is anticipating the weight increase today to further help him. He states he is performing HEP, but it is hard for him to get the L arm up on the wall for the corner stretch. *Precautions: h/o CVA - Heat/Cryotherapy Treatment: Hot Pack (15 mins cervical in sitting) - Traction Treatment Method: Mechanical, Intermittent, Cervical Patient Position: Supine Amount of Force Applied: 21-22 Hold Time: 30 Rest Time: 5 Duration of treatment: 18 Traction Treatment Comment: HOG KILLER with pt during traction ~40 mins adjusting sled frequently due to patient movement during conversation. Patient reminded often to lay still and re-positioned many times. Interventions - Exercise/Activities/Manual Therapy Exercises/Activities: Reviewed postural mechanics and HEP Manual Therapy: none today HOME EXERCISE PROGRAM: cervical and scapular retraction, doorway stretch with arms below shoulder height. - Charges Timed Code Treatment Minutes: 40 Total Treatment Time: 55 Procedures billed for this date of service:: mechanical traction, HP Assessment: Patient francesco increasing poundage well, however HOG KILLER remained with pt throughout entire time of traction due to constant repositioning as he moves frequently. He should have improvement of radiating symptoms through use of mechanical traction. Patient Education: Education of diagnosis, Body/Joint mechanics, Home Exercise Program Patient demonstrates compliance with HEP?: Yes Short Term Goals Goal #1: Pt able to perform ex's for home independently. Goal to be met by: 02/06/19 Progress towards Goal:: Progressing Goal #2: Patient will demonstrate improved postural awareness. Goal to be met by: 02/06/19 Goal #3: RUE radiating pain frequency less than daily. Goal to be met by: 02/06/19 Goal #4: . Half-Way Goals Goal #1: Pt Independent with HEP & understands to cont. ex's after D/C. Goal to be met by: 02/27/19 Goal #2: Score on Neck Disability Index score improved to 10. Goal to be met by: 02/27/19 Goal #3: Pt will sleep through the night with min. interruption from neck/RUE pain. Goal to be met by: 02/27/19 Goal #4: . Plan Dates of Rail Transportation Tabeler Goals: 02/27/19 Expiration date of current Insurance Approval:: 02/27/19 PLAN: Continue BIW for mechanical traction and postural therex to improve radicular symptoms
--- NOTE | 2019-02-01 11:27 | RS.OPPTDN ---
Subjective Date of Note: 01/30/19 Visit #: 3 Number of visits approved by Insurance: pending, requested 6 Date of Evaluation: 01/23/19 Payer Source: Medicaid Treatment Diagnosis: Cervicalgia, radiating pain into right UE Current Subjective/complaints:: Patient says neck still bothers him, but traction seems to be helping. C/o back pain today. *Precautions: h/o CVA - Heat/Cryotherapy Treatment: Hot Pack (cervical x 15 mins in sitting) - Traction Treatment Method: Mechanical, Intermittent, Cervical Patient Position: Supine Amount of Force Applied: 23 Hold Time: 35 Rest Time: 5 Duration of treatment: 20 Traction Treatment Comment: 2 steps, patient was repositioned several times throughout session. CUSTOMER EXPERIENCE MANAGER constantly with him during whole treatment to monitor. Interventions - Exercise/Activities/Manual Therapy Exercises/Activities: Reviewed postural mechanics and HEP Manual Therapy: none today HOME EXERCISE PROGRAM: cervical and scapular retraction, doorway stretch with arms below shoulder height. - Charges Timed Code Treatment Minutes: 33 Total Treatment Time: 48 Procedures billed for this date of service:: hp, mechanical traction Assessment: Patient francesco increase in poundage, but needs constant monitoring due to slipping of sled. He does admit improved neck pain and radiculopathy following session and should farncesco progression of weight for 3 more treatments. Patient Education: Education of diagnosis, Body/Joint mechanics, Education of Plan of Care Patient demonstrates compliance with HEP?: Yes Short Term Goals Goal #1: Pt able to perform ex's for home independently. Goal to be met by: 02/06/19 Progress towards Goal:: Progressing Goal #2: Patient will demonstrate improved postural awareness. Goal to be met by: 02/06/19 Progress towards Goal:: Progressing Goal #3: RUE radiating pain frequency less than daily. Goal to be met by: 02/06/19 Progress towards Goal:: Progressing Goal #4: . [facility] Goals Goal #1: Pt Independent with HEP & understands to cont. ex's after D/C. Goal to be met by: 02/27/19 Goal #2: Score on Neck Disability Index score improved to 10. Goal to be met by: 02/27/19 Goal #3: Pt will sleep through the night with min. interruption from neck/RUE pain. Goal to be met by: 02/27/19 Goal #4: . Plan Dates of [facility] Goals: 02/27/19 Expiration date of current Insurance Approval:: 02/27/19 PLAN: Continue 3 more treatments progressing traction to reduce radicular symptoms.
--- NOTE | 2019-02-01 16:50 | RS.OPPTDN ---
Subjective Date of Note: 02/01/19 Visit #: 4 Number of visits approved by Insurance: pending, requested 6 Date of Evaluation: 01/23/19 Payer Source: Medicaid Treatment Diagnosis: Cervicalgia, radiating pain into right UE Current Subjective/complaints:: Patient says he has not had any pain down the R arm the past few days this week. States he has no JAIN's and neck pain is only very little and comes and goes. *Precautions: h/o CVA - Heat/Cryotherapy Treatment: Hot Pack (cervical x 15 mins in sitting) - Traction Treatment Method: Mechanical, Intermittent, Cervical Patient Position: Supine Amount of Force Applied: 23-24 Hold Time: 35 Rest Time: 5 Duration of treatment: 20 Traction Treatment Comment: 2 steps. Patient positioned today well and did not have as much difficulty with slippage. Angle of bed was inclined and appeared to be more adjusted for his head/neck. Interventions - Exercise/Activities/Manual Therapy Exercises/Activities: Reviewed postural mechanics and HEP Manual Therapy: none today HOME EXERCISE PROGRAM: cervical and scapular retraction, doorway stretch with arms below shoulder height. - Charges Timed Code Treatment Minutes: 20 Total Treatment Time: 40 Procedures billed for this date of service:: hp, mechanical traction Assessment: Patient francesco traction much better today. He is having less pain frequency to the R UE with also less intense neck pain in general. He should progress with more reduction in neck pain and radicular symptoms next week as he has 2 sessions remaining. Patient Education: Home Exercise Program, Education of Plan of Care Patient demonstrates compliance with HEP?: Yes Short Term Goals Goal #1: Pt able to perform ex's for home independently. Goal to be met by: 02/06/19 Progress towards Goal:: Progressing Goal #2: Patient will demonstrate improved postural awareness. Goal to be met by: 02/06/19 Progress towards Goal:: Progressing Goal #3: RUE radiating pain frequency less than daily. Goal to be met by: 02/06/19 Progress towards Goal:: Progressing Goal #4: . [employer] [facility] Goals Goal #1: Pt Independent with HEP & understands to cont. ex's after D/C. Goal to be met by: 02/27/19 Goal #2: Score on Neck Disability Index score improved to 10. Goal to be met by: 02/27/19 Goal #3: Pt will sleep through the night with min. interruption from neck/RUE pain. Goal to be met by: 02/27/19 Progress towards goal: Progressing Goal #4: . Plan Dates of [facility] Goals: 02/27/19 Expiration date of current Insurance Approval:: 02/27/19 PLAN: Patient to continue to advance traction x 2 more sessions.
--- NOTE | 2019-02-06 11:11 | RS.OPPTDN ---
Subjective Date of Note: 02/06/19 Visit #: 5 Number of visits approved by Insurance: 6 Date of Evaluation: 01/23/19 Payer Source: Medicaid Treatment Diagnosis: Cervicalgia, radiating pain into right UE Current Subjective/complaints:: Patient says, "I don't have pain in my arm hardly any now." "The only time I have pain in my arm is when I lay down in a bad position." *Precautions: h/o CVA Pain Assessment - Pain Description Pain Location: Mostly at the cervical and UT, rarely radiating now to the R UE - Heat/Cryotherapy Treatment: Hot Pack (cervical x 20 mins in sitting) - Traction Treatment Method: Mechanical, Intermittent, Cervical Patient Position: Supine Amount of Force Applied: 24-25 Hold Time: 40 Rest Time: 5 Duration of treatment: 20 Traction Treatment Comment: FIXED WING PILOT stayed with pt during entire time of traction monitoring and repositioning angle due to R UE pain. Interventions - Exercise/Activities/Manual Therapy Exercises/Activities: Continued to review HEP, postural techniques, and education on traction. Strongly encouraged consistent use of HEP as he admits he is not performing them much. Corrected scap retraction and cervical retraction today and patient performs. Manual Therapy: none today HOME EXERCISE PROGRAM: cervical and scapular retraction, doorway stretch with arms below shoulder height. - Charges Timed Code Treatment Minutes: 23 Total Treatment Time: 43 Procedures billed for this date of service:: hp, mechanical traction Assessment: Patient had difficulty francesco traction today due to angle position causing R UE pain. Angle was repositioned often to provide comfort, but this was his normal alignment in previous sessions in which this pain was not present. Stopped traction 2 mins early so that he could gain relief. As he sat on the EOB, symptoms immediately subsided. Patient Education: Education of diagnosis, Body/Joint mechanics, Home Exercise Program, Education of Plan of Care Patient demonstrates compliance with HEP?: No Short Term Goals Goal #1: Pt able to perform ex's for home independently. Goal to be met by: 02/06/19 Progress towards Goal:: Progressing Goal #2: Patient will demonstrate improved postural awareness. Goal to be met by: 02/06/19 Progress towards Goal:: Progressing Goal #3: RUE radiating pain frequency less than daily. Goal to be met by: 02/06/19 Progress towards Goal:: Met Goal #4: . [facility] Goals Goal #1: Pt Independent with HEP & understands to cont. ex's after D/C. Goal to be met by: 02/27/19 Progress towards goal: Progressing Goal #2: Score on Neck Disability Index score improved to 10. Goal to be met by: 02/27/19 Comments: Assess next session Goal #3: Pt will sleep through the night with min. interruption from neck/RUE pain. Goal to be met by: 02/27/19 Progress towards goal: Progressing Goal #4: . Plan Dates of [facility] Goals: 02/27/19 Expiration date of current Insurance Approval:: 02/27/19 PLAN: Continue x 1 more session to complete reassessment.
--- NOTE | 2019-02-09 09:49 | RS.CXNS ---
Date of scheduled appointment: 02/09/19 Type: Cancel
--- NOTE | 2019-02-15 13:03 | RS.OPPTDN ---
Subjective Date of Note: 02/15/19 Visit #: 6 Number of visits approved by Insurance: 6 Date of Evaluation: 01/23/19 Payer Source: Medicaid Treatment Diagnosis: Cervicalgia, radiating pain into right UE Current Subjective/complaints:: Patient says he had a fall landing on his bottom at [employer]. He states he bruised his R upper arm on a shelf while trying to sit down. He says he is disappointed that today is his final visit, but states traction helped him signficantly and is thankful his insurance approved him to come. *Precautions: h/o CVA - Heat/Cryotherapy Treatment: Hot Pack (20 mins cervical in sitting) - Traction Treatment Method: Mechanical (stayed with patient throughout traction time to monitor any repositioning required. Discussed HEP and postural techniques following discharge today.), Intermittent, Cervical Patient Position: Supine Amount of Force Applied: 24-25 Hold Time: 45 Rest Time: 5 Duration of treatment: 20 Traction Treatment Comment: No slipping noted this treatment date. Interventions - Exercise/Activities/Manual Therapy Exercises/Activities: Continued to review HEP, postural techniques, and education on traction. Strongly encouraged consistent use of HEP as he admits he is not performing them much. Corrected scap retraction and cervical retraction today and patient performs. Manual Therapy: none today HOME EXERCISE PROGRAM: cervical and scapular retraction, doorway stretch with arms below shoulder height. - Charges Timed Code Treatment Minutes: 20 Total Treatment Time: 40 Procedures billed for this date of service:: hp, mechanical traction Assessment: Patient admits improved symptoms to his neck and down the R UE. He has experienced less frequent radicular symptoms and less intense through progression of traction. He is aware of HEP and agrees to be more compliant with it. He expresses being grateful and satisfied with progress at this point. Patient Education: Education of diagnosis, Body/Joint mechanics, Home Exercise Program, Home Safety, Education of Plan of Care Patient demonstrates compliance with HEP?: Yes (agrees to be more consistent) Short Term Goals Goal #1: Pt able to perform ex's for home independently. Goal to be met by: 02/06/19 Progress towards Goal:: Met Goal #2: Patient will demonstrate improved postural awareness. Goal to be met by: 02/06/19 Progress towards Goal:: Progressing Comments:: inconsistent Goal #3: RUE radiating pain frequency less than daily. Goal to be met by: 02/06/19 Progress towards Goal:: Met Goal #4: . [employer] Goals Goal #1: Pt Independent with HEP & understands to cont. ex's after D/C. Goal to be met by: 02/27/19 Progress towards goal: Progressing Goal #2: Score on Neck Disability Index score improved to 10. Goal to be met by: 02/27/19 Goal #3: Pt will sleep through the night with min. interruption from neck/RUE pain. Goal to be met by: 02/27/19 Progress towards goal: Progressing Goal #4: . Plan Dates of Engineer/Con[employer] Goals: 02/27/19 Expiration date of current Insurance Approval:: 02/27/19 PLAN: Patient to discharge as he completed PT today. Will forward daily notes to his MD.
== END 2019-02-23 23:59 ==
PROVIDERS: ATTEND Orthopaedic Surgery
DX: M54.2 Cervicalgia (principal); M54.12 Radiculopathy, cervical region